=== PATIENT | female | born 1990 | race African-American/Black ===

== ENCOUNTER 2024-08-28 20:15 | Emergency (ER) | payer OTHER, SELFPAY ==
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
[2024-08-28 20:08] VITALS: BP 145/90; PULSE 131; RESP 28; TEMP 37.2; O2SAT 97
[2024-08-28 20:21] VITALS: BP 140/90; PULSE 125; PULSE 126; RESP 19; TEMP 37.2; O2SAT 97; O2SAT 98
--- NOTE | 2024-08-28 20:21 | ECG_ITS ---
Test Date: 2024-08-28 20:32:26 Measurements Intervals [place] Rate: 118 P: 46 IN: 149 QRS: -3 QRSD: 84 T: 56 QT: 318 QTc: 447 Interpretive Statements SINUS TACHYCARDIA VOLTAGE CRITERIA FOR LVH, CONSIDER NORMAL VARIANT NONSPECIFIC T-WAVE ABNORMALITY Electronically Signed On 08-28-2024 23:33:49 CDT by Lonnie Riley D.O
--- NOTE | 2024-08-28 20:23 | PC.NURSE ---
pt arrives with cerda catheter in place. 1200 ml emptied from bag at arrival.
[2024-08-28] MEDS: ASPIRIN 81 MG CHEWABLE TABLET 324 MG PO (20:36)
[2024-08-28 20:40] LABS: Hematocrit 33.8 % (37.0-47.0); Hemoglobin 10.3 g/dL (12.0-15.0); Immature Granulocyte Percent A 0.6 % (0-0.5); Lymphocytes Absolute Auto 1.77 K/mm3 (0.9-3.2); Mean Corpuscular HGB Conc 30.5 g/dl (32-36); Mean Corpuscular Hemoglobin 25.5 pg (26-34); Mean Corpuscular Volume 83.7 fl (80-100); Nucleated Red Blood Cells Absolute Auto 0.000 K/mm3 (0.0-0.012); Nucleated Red Blood Cells Perc 0.0 % (0.0-0.2); Platelet Count Result 622 k/mm3 (150-375); Red Blood Count 4.04 M/mm3 (4.2-5.4); White Blood Count 11.3 K/mm3 (4.5-10.0)
[2024-08-28 20:52] LABS: Alanine Aminotransferase 16 U/L (6-35); Albumin Level 4.0 g/dL (3.5-5.1); Alkaline Phosphatase 205 U/L (38-126); Anion Gap 13 mmol/L (4-12); Aspartate Amino Transferase 25 U/L (14-36); Bilirubin,Total 1.0 mg/dL (0.2-1.3); Blood Urea Nitrogen 8 mg/dL (7-17); Calcium 10.1 mg/dL (8.4-10.2); Carbon Dioxide 20 mmol/L (22-30); Chloride 101 mmol/L (98-107); Estimated CRCL calculation 146 ml/min; Estimated Glomerular Filt Rate > 60; Glucose 90 mg/dL (65-110); INR 1.2; Lipase 34 U/L (23-300); Partial Thromboplastin Time 35.6 Seconds (22.3-36.8); Potassium 4.6 mmol/L (3.4-5.0); Prothrombin Time 15.0 Seconds (11.1-14.7); Sodium 134 mmol/L (137-145); Total Protein 7.9 g/dL (6.3-8.2)
[2024-08-28 21:04] LABS: Troponin I < 0.012 ng/mL (0.000-0.034)
[2024-08-28 21:42] VITALS: BP 129/80; PULSE 117; RESP 21; O2SAT 100
--- NOTE | 2024-08-28 21:59 | ED_ITS ---
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 represent atelectasis and/or infarct. Presumed atelectasis in the dependent left lower lobe. Left lower quadrant colostomy, with surrounding inflammatory stranding/fluid. Correlate for clinical findings of infection or leak. Right ischial decubitus ulcer extending to bone, with findings suggestive of early osteomyelitis in the right ischium. . <Brooke Reaves APRN - Last Filed: 08/29/24 03:15> ECG Data EKG #1: Attestation: I personally reviewed and interpreted this ECG as follows: <Brooke Reaves APRN - Last Filed: 08/29/24 03:15> ECG completion date: 08/28/24 <Brooke Reaves APRN - Last Filed: 08/29/24 03:15> ECG completion time: 20:35 <Brooke Reaves APRN - Last Filed: 08/29/24 03:15> Prior ECG tracings: available for review <Brooke Reaves APRN - Last Filed: 08/29/24 03:15> Ischemic changes: non-specific ST-T wave changes <Brooke Reaves APRN - Last Filed: 08/29/24 03:15> EKG Interpretation: tachycardia and sinus rhythm <Brooke Reaves APRN - Last Filed: 08/29/24 03:15> Critical Care Time Critical Care Time Critical Care Time: Yes <Brooke Reaves APRN - Last Filed: 08/29/24 03:15> Yes <Brayden Bernardo MD - Last Filed: 08/29/24 07:07> Total Critical Care Time: 55 <Brooke Reaves APRN - Last Filed: 08/29/24 03:15> Discharge Plan Discharge Clinical Impression: Pulmonary embolism and infarction, Sepsis, Osteomyelitis <Brooke Reaves APRN - Last Filed: 08/29/24 03:15> Patient Disposition: Acute Care Hospital <Brooke Reaves APRN - Last Filed: 08/29/24 03:15> Condition: Serious <Brooke Reaves APRN - Last Filed: 08/29/24 03:15> Patient Language: Polish <Brooke Reaves APRN - Last Filed: 08/29/24 03:15> Follow-up/Referrals: PHYSICIAN,WINDOWS SECURITY ENGINEER [Primary Care Provider] - <Brooke Reaves APRN - Last Filed: 08/29/24 03:15>
--- OUTSIDE RECORDS SUMMARY | 2024-08-28 22:01 | XMS_ITS | Clinical Summary ---
Author Organization [facility] Address [facility] [place] [address] Care Team Providers Care Brass Sorter Name Role Phone Timothy Townsend MD Primary Care Provider [phone] Allergies Active Allergy Reactions Criticality Noted Date Comments Ceftriaxone Other (see comment) 04/13/2024 Pt unsure her reaction due to being out of it. Medications No known medications Encounters Date Type Department Care Team Description 05/30/2024 Results Follow-Up [facility] [place] [address] Virgie Grubbs, JAQUI CULTURE URINE from Last 3 Months Social History Tobacco Use Types Packs/Day Years Used Date Smoking Tobacco: Unknown Tobacco Cessation:Counseling Given: Not Answered Alcohol Use Standard Drinks/Week Comments Not Currently 0 (1 standard drink = 0.6 oz pur e alcohol) Comments No Sex and Gender Information Value Date Recorded Sex Assigned at Female 04/13/2024 5:28 PM LEARNING DESIGNER Legal Sex Female 11:24 AM CDT Gender Identity Not on file Sexual Orientation Not on file Last Filed Vital Signs Vital Sign Reading Time Taken Comments Blood Pressure 123/75 05/28/2024 6:06 PM CDT Pulse 108 05/28/2024 6:06 PM CDT Temperature 36.7 C (98.1 F) 05/28/2024 6:06 PM CDT Respiratory Rate 18 05/28/2024 6:06 PM CDT Oxygen Saturation 100% 05/28/2024 6:06 PM CDT Inhaled Oxygen Concentration - - Weight 104.3 kg (230 lb) 05/28/2024 6:06 PM CDT Height 160 cm (5' 3) 05/28/2024 6:06 PM CDT Body Mass Index 40.74 05/28/2024 6:06 PM CDT Plan of Treatment Health Maintenance Due Date Last Done Comments Cervical Cancer Screening Pa p Smear (Age 30 to 64) Every 3 Years 1990 Annual Physical 1993 DTaP, Tdap and Td Vaccines ( 1 - Tdap) 2009 Hepatitis B Vaccines (1 of 3 - 19+ 3-dose series) 2009 Cervical Cancer Screening Pa p with HPV Testing (Age 30 to 64) Every 5 Years 2020 Cervical Cancer Screening wi th HPV 2020 COVID-19 Vaccine (2023-2 5 season) 2023 Hepatitis C Completed 05/17/2024, 05/17/2024 HPV Vaccines Aged Out No longer eligi ble based on patient's age to complete this topic Meningococcal B Vaccine Aged Out No l onger eligible based on patient's age to complete this topic Meningococcal Vaccine Aged Out No drake susan eligible based on patient's age to complete this topic Pneumococcal Vaccine: Pediatrics (0 to 5 Years) and At-Risk Patients (6 to 49 Years) Aged Out No longer eligible b ased on patient's age to complete this topic RSV Immunizations Under 20 Months Aged Out No longer eligible b ased on patient's age to complete this topic Insurance [facility] Care Teams Brass Sorter Relationship Specialty Start Date End Date Timothy Townsend MD [address] [address] PCP - General FAMILY PRACTICE 08/10/23
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
--- OUTSIDE RECORDS SUMMARY | 2024-08-28 22:01 | XMS_ITS | Data Portability ---
Author Organization [facility] YVETTEArvind Address [address] [place] [address] Care Team Providers Care Greige Goods Inspector Name Role Phone TIMOTHY HYATT Primary Care Provider Liyah e Assessment No assessment recorded. Plan of Treatment Reminders Order Date Submit Date Provider Last Modified By Organization Details Last Modified Time Details Appointments None recorded . Lab culture, urine 2023 024 [facility], [address] [place] [address], [address], [place], [address], 4 13:10:53 urinalys is, complete 2023 024 [facility], [address] [place] [address], [address], [place], [address], 4 03:09:08 Referral occupati onal therapis t referral 2024 025 [facility], [address], Abdoul Kiran, [place], [address], 5 14:04:23 physical therapis t referral 2023 024 [facility], [facility] [place], [address], 4 12:24:19 occupati onal therapis t referral 2023 024 [facility], [facility] [place], [address], 4 10:43:20 Procedures None recorded . Surgeries None recorded . Imaging None recorded . Medication Orders ciproflo xacin 0.3 %-dexame thasone 0.1 % ear drops,benitez spension 2024 025 [id number], [address] , [place], [address], 5 11:50:29 pregabal in 300 mg capsule 2024 [address]25 [id number], [address] [place], [address], 5 15:01:20 oxycodon e 15 mg tablet 2024 025 [id number], [address] [place], [address], 5 11:50:30 BZK Antisept ic [place] es 0.13 % [address], [address], [address], 5 17:14:18 morphine ER 30 mg tablet,e xtended release 2024 025 [id number], [address] [place], [address], 5 15:04:49 oxycodon e 15 mg tablet 2024 025 [id number], [address] [place], [address], 5 12:56:30 trazodon e 150 mg tablet 2024 025 [id number], [address] [place], [address], 5 12:56:29 ammonium lactate 12 % lotion 2023 [id number], [address], [place], [address], 4 12:38:36 bisacody l 10 mg rectal supposit ory 2023 [id number], [address], [place], [address], 4 12:38:33 senna 8.6 mg tablet 2023 [id number], [address], [place], [address], 4 12:38:31 morphine ER 30 mg tablet,e xtended release 2023 [id number], [address], [place], [address], 4 12:38:44 oxycodon e 10 mg tablet 2023 [email or web address] [id number], [address], [place], [address], 5 15:03:22 pregabal in 200 mg capsule 2023 [id number], [address], [place], [address], 4 12:38:45 tizanidi ne 4 mg tablet 2023 [id number], [address], [place], [address], 4 12:38:32 trazodon e 50 mg tablet 2023 [id number], [address], [place], [address], 4 12:38:33 lidocain e 5 % topical patch 2023 [id number], [address] , [place], [address], 4 12:38:31 duloxeti ne 30 mg capsule, delayed release 2023 [id number], [address], [place], [address], 4 11:43:38 oxycodon e 10 mg tablet [id number], [address] [place], [address], 5 15:03:22 ciproflo xacin 0.3 %-dexame thasone 0.1 % ear drops,benitez spension [address] [facility][id number], [address], [place], [id number], 4 11:12:01 tizanidi ne 4 mg tablet [address] [facility] #[id number], [address] [place], [place], [id number], 4 10:30:24 pregabal in 200 mg capsule [address] [facility] #44029, [address], [place], [id number], 4 10:30:47 morphine ER 30 mg tablet,e xtended release [address] [facility] #18855, [address], [place], [id number], 4 10:30:38 Patient TargetsNo targets recorded. Patient Instructions Encounter Date Encounter Id Patient Instructions Last Modified By Organization Details Last Modified Time 04/11/2024 [id number] A healthy lifestyle: care instructions [email or web address] Not available 04/13/2024 14:43:02 Reason for Referral Physical Therapist Referral for Paraplegia with neurogenic urinary bladder Referring Physician: Timothy Hyatt [facility], Encounter Date: 10/23/2023 Occupational Therapist Refer ral for Paraplegia with neurogenic urinary bladder Referring Physician: Timothy Hyatt [facility], Encounter Date: 10/23/2023 Occupational Therapist Refer ral for Paraplegia with neurogenic urinary bladder Referring Physician: Timothy Hyatt [facility], Encounter Date: 04/11/2024 Results Created Date Observation Date Name Description Value Unit Range Abnormal Flag Note LastModifiedBy Organization Detail LastModifiedTime 09/12/19 24 09/19/2023 URINE CULTU RE, ROUTI NE urine culture, routine FINAL REPORT abnormal Not Available [facility] ([facility]) [address], [place], [address], 09/19/2023 13:10:53 09/12/19 24 09/19/2023 URINE CULTU RE, ROUTI NE result 1 COMMEN T abnormal Esche ba a coli, ident ified by an autom ated bioch emica l syste m. Cefaz nahed with an ANGIE <=16 predi cts susce ptibi lity to the oral agent s cefac aleida, cefdi radha, cefpo doxim e, cefpr ozil, cefur oxime , cepha lexin , and lorac arbef when used for thera py of uncom plica riaz urina ry tract infec tions due to E. coli, Klebs iella pneum oniae , and Prote us mirab ilis. Great er than 100,0 00 colon y formi ng units per mL Not Available [facility] ([facility]) [address], [place], [address], 09/19/2023 13:10:53 09/12/19 24 09/19/2023 URINE CULTU RE, ROUTI NE result 2 KLEBSI PEBBLES PNEUMO NIAE abnormal Cefaz nahed <=4 ug/mL Cefaz nahed with an ANGIE <=16 predi cts susce ptibi lity to the oral agent s cefac aleida, cefdi radha, cefpo doxim e, cefpr ozil, cefur oxime , cepha lexin , and lorac arbef when used for thera py of uncom plica riaz urina ry tract infec tions due to E. coli, Klebs iella pneum oniae , and Prote us mirab ilis. Great er than 100,0 00 colon y formi ng units per mL Not Available [facility] ([facility]) [address], [place], [address], 09/19/2023 13:10:53 09/12/19 24 09/19/2023 URINE CULTU RE, ROUTI NE antimicrobia l susceptibili ty COMMEN T S = Susce ptibl e; I = Inter media te; R = Resis tant P = Posit jennifer; N = Negat jennifer MICS are expre ssed in micro grams per mL Antib iotic RSLT# 1 RSLT# 2 RSLT# 3 RSLT# 4 Amoxi cilli n/Cla vulan ic Acid I S Ampic illin R R Cefaz nahed S Cefep petar S Ceftr iaxon e S S Cefur oxime I S Cipro floxa jaime R S Ertap enem S S Genta micin S S Imipe nem S S Levof loxac in R S Merop enem S S Nitro furan toin S S Piper acill in/Ta zobac zavala S Tetra cycli ne R S Tobra mycin S S Trime thopr im/Benitez lfa S S Not Available [facility] ([facility]) [address], [place], [address], 09/19/2023 13:10:53 10/10/19 24 10/11/2023 MICRO SCOPI C EXAMI NATIO N WBC >30 /hpf 0-5 abnormal Not Available [facility] ([facility]) [address], [place], [address], 10/11/2023 03:09:07 10/10/19 24 10/11/2023 MICRO SCOPI C EXAMI NATIO N RBC >30 /hpf 0-2 abnormal Not Available [facility] ([facility]) [address], [place], [address], 10/11/2023 03:09:07 10/10/19 24 10/11/2023 MICRO SCOPI C EXAMI NATIO N epithelial cells (non renal) None seen /hpf 0-10 Not Available [facility] ([facility]) [address], [place], [address], 10/11/2023 03:09:07 10/10/19 24 10/11/2023 MICRO SCOPI C EXAMI NATIO N casts None seen /lpf nonese en Not Available [facility] ([facility]) [address], [place], [address], 10/11/2023 03:09:07 10/10/19 24 10/11/2023 MICRO SCOPI C EXAMI NATIO N bacteria Many nonese en/few abnormal Not Available [facility] ([facility]) [address] [place], [address], 10/11/2023 03:09:07 10/10/19 24 10/10/2023 URINA LYSIS , COMPL ETE specific gravity 1.023 1.005- 1.030 Not Available [facility] ([facility]) [address] [place], [address], 10/11/2023 03:09:08 10/10/19 24 10/10/2023 URINA LYSIS , COMPL ETE pH 5.5 5.0-7. 5 Not Available [facility] ([facility]) [address] [place], [address], 10/11/2023 03:09:08 10/10/19 24 10/10/2023 URINA LYSIS , COMPL ETE urine-color YELLOW yellow Not Available [facility]) [address], [place], [address], 10/11/2023 03:09:08 10/10/19 24 10/10/2023 URINA LYSIS , COMPL ETE appearance CLOUDY clear abnormal Not Available [facility]) [address], [place], [address], 10/11/2023 03:09:08 10/10/19 24 10/10/2023 URINA LYSIS , COMPL ETE WBC esterase 3+ negati ve abnormal Not Available [facility] ([facility]) [address] [place], [address], 10/11/2023 03:09:08 10/10/19 24 10/10/2023 URINA LYSIS , COMPL ETE protein 1+ negati ve/tra ce abnormal Not Available [facility] ([facility]) [address] [place], [address], 10/11/2023 03:09:08 10/10/19 24 10/10/2023 URINA LYSIS , COMPL ETE glucose NEGATI VE negati ve Not Available [facility] ([facility]) [address] [place], [address], 10/11/2023 03:09:08 10/10/19 24 10/10/2023 URINA LYSIS , COMPL ETE ketones NEGATI VE negati ve Not Available [facility] ([facility]) [address] [place], [address], 10/11/2023 03:09:08 10/10/19 24 10/10/2023 URINA LYSIS , COMPL ETE occult blood 3+ negati ve abnormal Not Available [facility] ([facility]) [address] [place], [address], 10/11/2023 03:09:08 10/10/19 24 10/10/2023 URINA LYSIS , COMPL ETE bilirubin NEGATI VE negati ve Not Available [facility] ([facility]) [address] [place], [address], 10/11/2023 03:09:08 10/10/19 24 10/10/2023 URINA LYSIS , COMPL ETE urobilinogen ,semi-qn 0.2 mg/dL 0.2-1. 0 Not Available [facility] ([facility]) [address] [place], [address], 10/11/2023 03:09:08 10/10/19 24 10/10/2023 URINA LYSIS , COMPL ETE nitrite, urine NEGATI VE negati ve Not Available [facility] ([facility]) [address] [place], [address], 10/11/2023 03:09:08 10/10/19 24 10/10/2023 URINA LYSIS , COMPL ETE microscopic examination SEE BELOW: Micro scopi c was indic ated and was perfo rmed. Not Available [facility] ([facility]) [address] [place], [address], 10/11/2023 03:09:08 10/10/19 24 10/11/2023 MICRO SCOPI C EXAMI NATIO N WBC >30 /hpf 0-5 abnormal Clump s of leuko cytes prese nt. Not Available [facility] ([facility]) [address] [place], [address], 10/11/2023 03:09:10 10/10/19 24 10/11/2023 MICRO SCOPI C EXAMI NATIO N RBC >30 /hpf 0-2 abnormal Not Available [facility] ([facility]) [address] [place], [address], 10/11/2023 03:09:10 10/10/19 24 10/11/2023 MICRO SCOPI C EXAMI NATIO N epithelial cells (non renal) None seen /hpf 0-10 Not Available [facility] ([facility]) [address] [facility], [place], [address], 10/11/2023 03:09:10 10/10/19 24 10/11/2023 MICRO SCOPI C EXAMI NATIO N casts Presen t /lpf nonese en abnormal Not Available [facility] ([facility]) [address] [place], [address], 10/11/2023 03:09:10 10/10/19 24 10/11/2023 MICRO SCOPI C EXAMI NATIO N cast type Hyalin e casts Not Available [facility] ([facility]) [address] [place], [address], 10/11/2023 03:09:10 10/10/19 24 10/11/2023 MICRO SCOPI C EXAMI NATIO N crystals Presen t n/a abnormal Not Available [facility]) [address] [place], [address], 10/11/2023 03:09:10 10/10/19 24 10/11/2023 MICRO SCOPI C EXAMI NATIO N crystal type Calciu m Oxalat e Not Available [facility] ([facility]) [address] [place], [address], 10/11/2023 03:09:10 10/10/19 24 10/11/2023 MICRO SCOPI C EXAMI NATIO N bacteria Many nonese en/few abnormal Not Available [facility] ([facility]) [address] [place], [address], 10/11/2023 03:09:10 10/10/19 24 10/10/2023 URINA LYSIS , COMPL ETE specific gravity 1.023 1.005- 1.030 Not Available [facility] ([facility]) [address] [facility], [place], [address], 10/11/2023 03:09:11 10/10/19 24 10/10/2023 URINA LYSIS , COMPL ETE pH 5.5 5.0-7. 5 Not Available [facility] ([facility]) [address], [place], [address], 10/11/2023 03:09:11 10/10/19 24 10/10/2023 URINA LYSIS , COMPL ETE urine-color YELLOW yellow Not Available [facility]) [address] [facility], [place], [address], 10/11/2023 03:09:11 10/10/19 24 10/10/2023 URINA LYSIS , COMPL ETE appearance CLOUDY clear abnormal Not Available [facility]) [address] [facility], [place], [address], 10/11/2023 03:09:11 10/10/19 24 10/10/2023 URINA LYSIS , COMPL ETE WBC esterase 3+ negati ve abnormal Not Available [facility] ([facility]) [address] [facility], [place], [address], 10/11/2023 03:09:11 10/10/19 24 10/10/2023 URINA LYSIS , COMPL ETE protein 1+ negati ve/tra ce abnormal Not Available [facility] ([facility]) [address] [place], [address], 10/11/2023 03:09:11 10/10/19 24 10/10/2023 URINA LYSIS , COMPL ETE glucose NEGATI VE negati ve Not Available [facility] ([facility]) [address] [place], [address], 10/11/2023 03:09:11 10/10/19 24 10/10/2023 URINA LYSIS , COMPL ETE ketones NEGATI VE negati ve Not Available [facility] ([facility]) [address] [place], [address], 10/11/2023 03:09:11 10/10/19 24 10/10/2023 URINA LYSIS , COMPL ETE occult blood 3+ negati ve abnormal Not Available [facility] ([facility]) [address] [place], [address], 10/11/2023 03:09:11 10/10/19 24 10/10/2023 URINA LYSIS , COMPL ETE bilirubin NEGATI VE negati ve Not Available [facility] ([facility]) [address] [place], [address], 10/11/2023 03:09:11 10/10/19 24 10/10/2023 URINA LYSIS , COMPL ETE urobilinogen ,semi-qn 0.2 mg/dL 0.2-1. 0 Not Available [facility] ([facility]) [address] [place], [address], 10/11/2023 03:09:11 10/10/19 24 10/10/2023 URINA LYSIS , COMPL ETE nitrite, urine NEGATI VE negati ve Not Available [facility] ([facility]) [address] [place], [address], 10/11/2023 03:09:11 10/10/19 24 10/10/2023 URINA LYSIS , COMPL ETE microscopic examination SEE BELOW: Micro scopi c was indic ated and was perfo rmed. Not Available [facility] ([facility]) [address] [place], [address], 10/11/2023 03:09:11 10/10/19 24 10/15/2023 URINE CULTU RE, ROUTI NE urine culture, routine FINAL REPORT abnormal Not Available [facility] ([facility]) [address] [place], [address], 10/15/2023 13:07:25 10/10/19 24 10/15/2023 URINE CULTU RE, ROUTI NE result 1 ESCHER ICHIA COLI abnormal Great er than 100,0 00 colon y formi ng units per mL Cefaz nahed <=4 ug/mL Cefaz nahed with an ANGIE <=16 predi cts susce ptibi lity to the oral agent s cefac aleida, cefdi radha, cefpo doxim e, cefpr ozil, cefur oxime , cepha lexin , and lorac arbef when used for thera py of uncom plica riaz urina ry tract infec tions due to E. coli, Klebs iella pneum oniae , and Prote us mirab ilis. Not Available [facility] ([facility]) [address] [place], [address], 10/15/2023 13:07:25 10/10/19 24 10/15/2023 URINE CULTU RE, ROUTI NE result 2 KLEBSI PEBBLES PNEUMO NIAE abnormal Cefaz nahed <=4 ug/mL Cefaz nahed with an ANGIE <=16 predi cts susce ptibi lity to the oral agent s cefac aleida, cefdi radha, cefpo doxim e, cefpr ozil, cefur oxime , cepha lexin , and lorac arbef when used for thera py of uncom plica riaz urina ry tract infec tions due to E. coli, Klebs iella pneum oniae , and Prote us mirab ilis. 50,00 0-100 ,000 colon y formi ng units per mL Not Available [facility] ([facility]) [address] [facility], [place], [address], 10/15/2023 13:07:25 10/10/19 24 10/15/2023 URINE CULTU RE, ROUTI NE antimicrobia l susceptibili ty COMMEN T S = Susce ptibl e; I = Inter media te; R = Resis tant P = Posit jennifer; N = Negat jennifer MICS are expre ssed in micro grams per mL Antib iotic RSLT# 1 RSLT# 2 RSLT# 3 RSLT# 4 Amoxi cilli n/Cla vulan ic Acid S S Ampic illin S R Cefep petar S S Ceftr iaxon e S S Cefur oxime S S Cipro floxa jaime S S Ertap enem S S Genta micin S S Imipe nem S S Levof loxac in S S Merop enem S S Nitro furan toin S S Piper acill in/Ta zobac zavala S S Tetra cycli ne S S Tobra mycin S S Trime thopr im/Benitez lfa S S Not Available [facility] ([facility]) [address] [facility], [place], [address], 10/15/2023 13:07:25 04/14/19 25 04/13/2024 Urina lysis dipst ick W Refle x Micro scopi c panel - Urine collection method - specimen URINE STRAIG HT CATH SPECI MEN TYPE URINE STRAI GHT CATH 04/13 5:03 PM FULFILLMENT COORDINATOR [facility] Not Available Not Available 04/13/2024 23:05:23 04/14/19 25 04/13/2024 Urina lysis dipst ick W Refle x Micro scopi c panel - Urine color of urine COLORL ESS COLOR (U) COLOR LESS 04/13 5:26 PM FULFILLMENT COORDINATOR [facility] Not Available Not Available 04/13/2024 23:05:23 04/14/19 25 04/13/2024 Urina lysis dipst ick W Refle x Micro scopi c panel - Urine clarity of urine CLEAR TRANS PAREN CY CLEAR 04/13 5:26 PM FULFILLMENT COORDINATOR [facility] Not Available Not Available 04/13/2024 23:05:23 04/14/19 25 04/13/2024 Urina lysis dipst ick W Refle x Micro scopi c panel - Urine specific gravity of urine 1.019 low: 1.001h igh: 1.03 SPECI FIC GRAVI TY (U) 1.019 1.001 - 1.030 04/13 5:26 PM FULFILLMENT COORDINATOR [facility] Not Available Not Available 04/13/2024 23:05:23 04/14/19 25 04/13/2024 Urina lysis dipst ick W Refle x Micro scopi c panel - Urine pH of urine 6 low: 5high: 9 U PH 6.0 5.0 - 9.0 04/13 5:26 PM FULFILLMENT COORDINATOR [facility] Not Available Not Available 04/13/2024 23:05:23 04/14/19 25 04/13/2024 Urina lysis dipst ick W Refle x Micro scopi c panel - Urine leukocytes [#/volume] in urine by test strip NEGATI VE text: negati ve LEUKO CYTES (U) NEGAT JENNIFER NEGAT JENNIFER 04/13 5:26 PM FULFILLMENT COORDINATOR [facility] Not Available Not Available 04/13/2024 23:05:23 04/14/19 25 04/13/2024 Urina lysis dipst ick W Refle x Micro scopi c panel - Urine nitrite [presence] in urine NEGATI VE text: negati ve NITRI SERVANDO NEGAT JENNIFER NEGAT JENNIFER 04/13 5:26 PM FULFILLMENT COORDINATOR [facility] Not Available Not Available 04/13/2024 23:05:23 04/14/19 25 04/13/2024 Urina lysis dipst ick W Refle x Micro scopi c panel - Urine protein [mass/volume ] in urine by test strip NEGATI VE text: <30 mg/dL PROTE IN RANDO M (U) NEGAT JENNIFER <30 MG/DL 04/13 5:26 PM FULFILLMENT COORDINATOR [facility] Not Available Not Available 04/13/2024 23:05:23 04/14/19 25 04/13/2024 Urina lysis dipst ick W Refle x Micro scopi c panel - Urine glucose [mass/volume ] in urine NORMAL text: normal mg/dL GLUCO SE (U) JEUSS ALBERTO L JESUS ALBERTO L MG/DL 04/13 5:26 PM FULFILLMENT COORDINATOR [facility] Not Available Not Available 04/13/2024 23:05:23 04/14/19 25 04/13/2024 Urina lysis dipst ick W Refle x Micro scopi c panel - Urine ketones [mass/volume ] in urine by test strip TRACE text: negati ve mg/dL abnormal KETON ES MG/DL (U) TRACE (A) NEGAT JENNIFER MG/DL 04/13 5:26 PM FULFILLMENT COORDINATOR [facility] Not Available Not Available 04/13/2024 23:05:23 04/14/19 25 04/13/2024 Urina lysis dipst ick W Refle x Micro scopi c panel - Urine urobilinogen [units/volum e] in urine by test strip NORMAL text: normal mg/dL UROBI LINOG EN JESUS ALBERTO L JESUS ALBERTO L MG/DL 04/13 5:26 PM FULFILLMENT COORDINATOR [facility] Not Available Not Available 04/13/2024 23:05:23 04/14/19 25 04/13/2024 Urina lysis dipst ick W Refle x Micro scopi c panel - Urine bilirubin.to raheel [mass/volume ] in urine NEGATI VE text: negati ve mg/dL BILIR UBIN (U) NEGAT JENNIFER NEGAT JENNIFER MG/DL 04/13 5:26 PM FULFILLMENT COORDINATOR [facility] Not Available Not Available 04/13/2024 23:05:23 04/14/19 25 04/13/2024 Urina lysis dipst ick W Refle x Micro scopi c panel - Urine erythrocytes [#/volume] in urine by automated test strip 1+ text: negati ve abnormal BLOOD (U) 1+ (A) NEGAT JENNIFER 04/13 5:26 PM FULFILLMENT COORDINATOR [facility] Not Available Not Available 04/13/2024 23:05:23 04/14/19 25 04/13/2024 Urina lysis dipst ick W Refle x Micro scopi c panel - Urine leukocytes [#/area] in urine sediment by microscopy high power field 2 text: <6 /hpf WBC/H PF 2 <6 /HPF 04/13 5:26 PM FULFILLMENT COORDINATOR [facility] Not Available Not Available 04/13/2024 23:05:23 04/14/19 25 04/13/2024 Urina lysis dipst ick W Refle x Micro scopi c panel - Urine erythrocytes [#/area] in urine sediment by microscopy high power field 6 text: <6 /hpf high RBC/H PF 6 (H) <6 /HPF 04/13 5:26 PM FULFILLMENT COORDINATOR [facility] Not Available Not Available 04/13/2024 23:05:23 04/14/19 25 04/13/2024 Urina lysis dipst ick W Refle x Micro scopi c panel - Urine bacteria [#/area] in urine sediment by microscopy high power field RARE text: none /hpf abnormal BACTE SABRINA (U) RARE (A) NONE /HPF 04/13 5:26 PM FULFILLMENT COORDINATOR [facility] Not Available Not Available 04/13/2024 23:05:23 04/14/19 25 04/13/2024 Urina lysis dipst ick W Refle x Micro scopi c panel - Urine interpretati on and review of laboratory results Abnorm al Not Available Not Available 23:05:23 04/14/19 25 04/13/2024 Influ ross virus A and B and SARS- CoV-2 (COVI D-19) and SARS- relat ed CoV RNA panel - Respi rator y syste m speci men by LEEANNE with probe detec tion adenovirus DNA [presence] in nasopharynx by LEEANNE with probe detection NOT DETECT ED text: not detect ed ADENO VIRUS PCR (RESP ) NOT DETEC RIAZ NOT DETEC RIAZ 04/13 4:36 PM FULFILLMENT COORDINATOR [facility] Not Available Not Available 04/13/2024 23:05:23 04/14/19 25 04/13/2024 Influ ross virus A and B and SARS- CoV-2 (COVI D-19) and SARS- relat ed CoV RNA panel - Respi rator y syste m speci men by LEEANNE with probe detec tion human coronavirus 229E RNA [presence] in specimen by LEEANNE with probe detection NOT DETECT ED text: not detect ed CORON AVIRU S 229E PCR (RESP ) NOT DETEC RIAZ NOT DETEC RIAZ 04/13 4:36 PM FULFILLMENT COORDINATOR [facility] Not Available Not Available 04/13/2024 23:05:23 04/14/19 25 04/13/2024 Influ ross virus A and B and SARS- CoV-2 (COVI D-19) and SARS- relat ed CoV RNA panel - Respi rator y syste m speci men by LEEANNE with probe detec tion human coronavirus hku1 RNA [presence] in specimen by LEEANNE with probe detection NOT DETECT ED text: not detect ed CORON AVIRU S HKU1 PCR (RESP ) NOT DETEC RIAZ NOT DETEC RIAZ 04/13 4:36 PM FULFILLMENT COORDINATOR [facility] Not Available Not Available 04/13/2024 23:05:23 04/14/19 25 04/13/2024 Influ ross virus A and B and SARS- CoV-2 (COVI D-19) and SARS- relat ed CoV RNA panel - Respi rator y syste m speci men by LEEANNE with probe detec tion human coronavirus nl63 RNA [presence] in specimen by LEEANNE with probe detection NOT DETECT ED text: not detect ed CORON AVIRU S NL63 PCR (RESP ) NOT DETEC RIAZ NOT DETEC RIAZ 04/13 4:36 PM FULFILLMENT COORDINATOR [facility] Not Available Not Available 04/13/2024 23:05:23 04/14/19 25 04/13/2024 Influ ross virus A and B and SARS- CoV-2 (COVI D-19) and SARS- relat ed CoV RNA panel - Respi rator y syste m speci men by LEEANNE with probe detec tion human coronavirus oc43 RNA [presence] in specimen by LEEANNE with probe detection NOT DETECT ED text: not detect ed CORON AVIRU S OC43 PCR (RESP ) NOT DETEC RIAZ NOT DETEC RIAZ 04/13 4:36 PM FULFILLMENT COORDINATOR [facility] Not Available Not Available 04/13/2024 23:05:23 04/14/19 25 04/13/2024 Influ ross virus A and B and SARS- CoV-2 (COVI D-19) and SARS- relat ed CoV RNA panel - Respi rator y syste m speci men by LEEANNE with probe detec tion human metapneumovi callum RNA [presence] in nasopharynx by LEEANNE with probe detection NOT DETECT ED text: not detect ed METAP NEUMO VIRUS PCR (RESP ) NOT DETEC RIAZ NOT DETEC RIAZ 04/13 4:36 PM FULFILLMENT COORDINATOR [facility] Not Available Not Available 04/13/2024 23:05:23 04/14/19 25 04/13/2024 Influ ross virus A and B and SARS- CoV-2 (COVI D-19) and SARS- relat ed CoV RNA panel - Respi rator y syste m speci men by LEEANNE with probe detec tion rhinovirus+e nterovirus RNA [presence] in specimen by LEEANNE with probe detection NOT DETECT ED text: not detect ed RHINO VIRUS /ENTE ROVIR US PCR (RESP ) NOT DETEC RIAZ NOT DETEC RIAZ 04/13 4:36 PM FULFILLMENT COORDINATOR [facility] Not Available Not Available 04/13/2024 23:05:23 04/14/19 25 04/13/2024 Influ ross virus A and B and SARS- CoV-2 (COVI D-19) and SARS- relat ed CoV RNA panel - Respi rator y syste m speci men by LEEANNE with probe detec tion influenza virus A RNA [presence] in nasopharynx by LEEANNE with probe detection NOT DETECT ED text: not detect ed INFLU ROSS A PCR (RESP ) NOT DETEC RIAZ NOT DETEC RIAZ 04/13 4:36 PM FULFILLMENT COORDINATOR [facility] Not Available Not Available 04/13/2024 23:05:23 04/14/19 25 04/13/2024 Influ ross virus A and B and SARS- CoV-2 (COVI D-19) and SARS- relat ed CoV RNA panel - Respi rator y syste m speci men by LEEANNE with probe detec tion influenza virus B RNA [presence] in nasopharynx by LEEANNE with probe detection NOT DETECT ED text: not detect ed INFLU ROSS B PCR (RESP ) NOT DETEC RIAZ NOT DETEC RIAZ 04/13 4:36 PM FULFILLMENT COORDINATOR [facility] Not Available Not Available 04/13/2024 23:05:23 04/14/19 25 04/13/2024 Influ ross virus A and B and SARS- CoV-2 (COVI D-19) and SARS- relat ed CoV RNA panel - Respi rator y syste m speci men by LEEANNE with probe detec tion parainfluenz a virus 1 RNA [presence] in nasopharynx by LEEANNE with probe detection NOT DETECT ED text: not detect ed PARAI NFLUE NZA 1 PCR (RESP ) NOT DETEC RIAZ NOT DETEC RIAZ 04/13 4:36 PM FULFILLMENT COORDINATOR [facility] Not Available Not Available 04/13/2024 23:05:23 04/14/19 25 04/13/2024 Influ ross virus A and B and SARS- CoV-2 (COVI D-19) and SARS- relat ed CoV RNA panel - Respi rator y syste m speci men by LEEANNE with probe detec tion parainfluenz a virus 2 RNA [presence] in nasopharynx by LEEANNE with probe detection NOT DETECT ED text: not detect ed PARAI NFLUE NZA 2 PCR (RESP ) NOT DETEC RIAZ NOT DETEC RIAZ 04/13 4:36 PM FULFILLMENT COORDINATOR [facility] Not Available Not Available 04/13/2024 23:05:23 04/14/19 25 04/13/2024 Influ ross virus A and B and SARS- CoV-2 (COVI D-19) and SARS- relat ed CoV RNA panel - Respi rator y syste m speci men by LEEANNE with probe detec tion parainfluenz a virus 3 RNA [presence] in nasopharynx by LEEANNE with probe detection NOT DETECT ED text: not detect ed PARAI NFLUE NZA 3 PCR (RESP ) NOT DETEC RIAZ NOT DETEC RIAZ 04/13 4:36 PM FULFILLMENT COORDINATOR [facility] Not Available Not Available 04/13/2024 23:05:23 04/14/19 25 04/13/2024 Influ ross virus A and B and SARS- CoV-2 (COVI D-19) and SARS- relat ed CoV RNA panel - Respi rator y syste m speci men by LEEANNE with probe detec tion parainfluenz a virus 4 RNA [presence] in nasopharynx by LEEANNE with probe detection NOT DETECT ED text: not detect ed PARAI NFLUE NZA 4 PCR (RESP ) NOT DETEC RIAZ NOT DETEC RIAZ 04/13 4:36 PM FULFILLMENT COORDINATOR [facility] Not Available Not Available 04/13/2024 23:05:23 04/14/19 25 04/13/2024 Influ ross virus A and B and SARS- CoV-2 (COVI D-19) and SARS- relat ed CoV RNA panel - Respi rator y syste m speci men by LEEANNE with probe detec tion respiratory syncytial virus RNA [presence] in nasopharynx by LEEANNE with probe detection NOT DETECT ED text: not detect ed RSV PCR (RESP ) NOT DETEC RIAZ NOT DETEC RIAZ 04/13 4:36 PM FULFILLMENT COORDINATOR [facility] Not Available Not Available 04/13/2024 23:05:23 04/14/1904/13/2024 Influ ross virus A and B and SARS- CoV-2 (COVI D-19) and SARS- relat ed CoV RNA panel - Respi rator y syste m speci men by LEEANNE with probe detec tion bordetella parapertussi s DNA [presence] in nasopharynx by LEEANNE with probe detection NOT DETECT ED text: not detect ed B PARAP ERTUS IS PCR (RESP ) NOT DETEC RIAZ NOT DETEC RIAZ 04/13 4:36 PM FULFILLMENT COORDINATOR [facility] Not Available Not Available 04/13/2024 23:05:23 04/14/19 25 04/13/2024 Influ ross virus A and B and SARS- CoV-2 (COVI D-19) and SARS- relat ed CoV RNA panel - Respi rator y syste m speci men by LEEANNE with probe detec tion bordetella pertussis DNA [presence] in nasopharynx by LEEANNE with probe detection NOT DETECT ED text: not detect ed BORDE TELLA PERTU SSIS PCR (RESP ) NOT DETEC RIAZ NOT DETEC RIAZ 04/13 4:36 PM FULFILLMENT COORDINATOR [facility] Not Available Not Available 04/13/2024 23:05:23 04/14/19 25 04/13/2024 Influ ross virus A and B and SARS- CoV-2 (COVI D-19) and SARS- relat ed CoV RNA panel - Respi rator y syste m speci men by LEEANNE with probe detec tion chlamydophil a pneumoniae DNA [presence] in specimen by LEEANNE with probe detection NOT DETECT ED text: not detect ed CHLAM YDOPH NAYE PNEUM ONIAE PCR (RESP ) NOT DETEC RIAZ NOT DETEC RIAZ 04/13 4:36 PM FULFILLMENT COORDINATOR [facility] Not Available Not Available 04/13/2024 23:05:23 04/14/19 25 04/13/2024 Influ ross virus A and B and SARS- CoV-2 (COVI D-19) and SARS- relat ed CoV RNA panel - Respi rator y syste m speci men by LEEANNE with probe detec tion mycoplasma pneumoniae DNA [presence] in specimen by LEEANNE with probe detection NOT DETECT ED text: not detect ed MYCOP LASMA PNEUM ONIAE PCR (RESP ) NOT DETEC RIAZ NOT DETEC RIAZ 04/13 4:36 PM FULFILLMENT COORDINATOR [facility] Not Available Not Available 04/13/2024 23:05:23 04/14/19 25 04/13/2024 Influ ross virus A and B and SARS- CoV-2 (COVI D-19) and SARS- relat ed CoV RNA panel - Respi rator y syste m speci men by LEEANNE with probe detec tion sars-cov-2 (covid-19) RNA [presence] in specimen by LEEANNE with probe detection NOT DETECT ED text: not detect ed CORON AVIRU S SARS COV 2 PCR (RESP ) NOT DETEC RIAZ NOT DETEC RIAZ 04/13 4:36 PM [facility] Not Available Not Available 04/13/2024 23:05:23 04/14/19 25 04/13/2024 Chori ogona dotro pin.b eta subun it [Unit s/vol ume] in Serum or Plasm a choriogonado tropin.beta subunit [units/volum e] in serum or plasma text: mIU/mL HCG QUANT ITATI VE <1 MIU/M L 04/13 2:29 PM FULFILLMENT COORDINATOR [facility] Not Available Not Available 04/13/2024 23:05:23 04/14/19 25 04/13/2024 CBC W Auto Diffe renti al panel - Blood leukocytes [#/volume] in blood by automated count 5.8 text: 4.5 - 11.0 x10'3/ uL WBC 5.80 4.5 - 11.0 x10'3 /uL 04/13 2:36 PM FULFILLMENT COORDINATOR [facility] Not Available Not Available 04/13/2024 23:05:23 04/14/19 25 04/13/2024 CBC W Auto Diffe renti al panel - Blood erythrocytes [#/volume] in blood by automated count 4.74 text: 4.20 - 5.40 x10'6/ uL RBC 4.74 4.20 - 5.40 x10'6 /uL 04/13 2:36 PM FULFILLMENT COORDINATOR [facility] Not Available Not Available 04/13/2024 23:05:23 04/14/19 25 04/13/2024 CBC W Auto Diffe renti al panel - Blood hemoglobin [mass/volume ] in blood 11.6 text: 12.0 - 16.0 g/dL low HGB 11.6 (L) 12.0 - 16.0 G/DL 04/13 2:36 PM [facility] Not Available Not Available 04/13/2024 23:05:23 04/14/19 25 04/13/2024 CBC W Auto Diffe renti al panel - Blood hematocrit [volume fraction] of blood 39.1 % low: 38%hig h: 48% HCT 39.1 38.0 - 48.0 % 04/13 2:36 PM FULFILLMENT COORDINATOR [facility] Not Available Not Available 04/13/2024 23:05:23 04/14/19 25 04/13/2024 CBC W Auto Diffe renti al panel - Blood MCV [entitic volume] 82.5 text: 81.0 - 99.0 fL MCV 82.5 81.0 - 99.0 FL 04/13 2:36 PM FULFILLMENT COORDINATOR [facility] Not Available Not Available 04/13/2024 23:05:23 04/14/19 25 04/13/2024 CBC W Auto Diffe renti al panel - Blood MCH [entitic mass] 24.5 pg low: 27pghi gh: 31pg low MCH 24.5 (L) 27.0 - 31.0 PG 04/13 2:36 PM FULFILLMENT COORDINATOR [facility] Not Available Not Available 04/13/2024 23:05:23 04/14/19 25 04/13/2024 CBC W Auto Diffe renti al panel - Blood MCHC [mass/volume ] 29.7 text: 32.0 - 36.0 g/dL low MCHC 29.7 (L) 32.0 - 36.0 G/DL 04/13 2:36 PM FULFILLMENT COORDINATOR [facility] Not Available Not Available 04/13/2024 23:05:23 04/14/19 25 04/13/2024 CBC W Auto Diffe renti al panel - Blood erythrocyte distribution width [entitic volume] by automated count 14.4 % low: 11.5%h igh: 14.5% RDW 14.4 11.5 - 14.5 % 04/13 2:36 PM [facility] Not Available Not Available 04/13/2024 23:05:23 04/14/19 25 04/13/2024 CBC W Auto Diffe renti al panel - Blood platelets [#/volume] in blood 157 text: 130 - 400 x10'3/ uL PLT 157 130 - 400 x10'3 /uL 04/13 2:36 PM FULFILLMENT COORDINATOR [facility] Not Available Not Available 04/13/2024 23:05:23 04/14/19 25 04/13/2024 CBC W Auto Diffe renti al panel - Blood platelet mean volume [entitic volume] in blood 10.8 text: 9.3 - 12.2 fL MPV 10.8 9.3 - 12.2 FL 04/13 2:36 PM FULFILLMENT COORDINATOR [facility] Not Available Not Available 04/13/2024 23:05:23 04/14/19 25 04/13/2024 CBC W Auto Diffe renti al panel - Blood differential cell count method - blood MANUAL DIFFER ENTIAL DIFFE RENTI AL TYPE MANUA L DIFFE RENTI AL 04/13 2:37 PM [facility] Not Available Not Available 04/13/2024 23:05:23 04/14/19 25 04/13/2024 CBC W Auto Diffe renti al panel - Blood segmented neutrophils/ 100 leukocytes in blood by manual count 77 % SEG NEUTR OPHIL S 77 % 04/13 2:37 PM [facility] Not Available Not Available 04/13/2024 23:05:23 04/14/19 25 04/13/2024 CBC W Auto Diffe renti al panel - Blood lymphocytes/ 100 leukocytes in blood by manual count 12 % LYMPH OCYTE S 12 % 04/13 2:37 PM [facility] Not Available Not Available 04/13/2024 23:05:23 04/14/19 25 04/13/2024 CBC W Auto Diffe renti al panel - Blood monocytes/10 0 leukocytes in blood by manual count 11 % MONOC YTES 11 % 04/13 2:37 PM FULFILLMENT COORDINATOR [facility] Not Available Not Available 04/13/2024 23:05:23 04/14/19 25 04/13/2024 CBC W Auto Diffe renti al panel - Blood neutrophils [#/volume] in blood 4.47 text: 1.80 - 7.70 x10'3/ uL ABS. NEUTR OPHIL S 4.47 1.80 - 7.70 x10'3 /uL 04/13 2:37 PM FULFILLMENT COORDINATOR [facility] Not Available Not Available 04/13/2024 23:05:23 04/14/19 25 04/13/2024 CBC W Auto Diffe renti al panel - Blood lymphocytes [#/volume] in blood 0.7 text: 1.00 - 4.80 x10'3/ uL low ABS. LYMPH OCYTE S 0.70 (L) 1.00 - 4.80 x10'3 /uL 04/13 2:37 PM FULFILLMENT COORDINATOR [facility] Not Available Not Available 04/13/2024 23:05:23 04/14/19 25 04/13/2024 CBC W Auto Diffe renti al panel - Blood monocytes [#/volume] in blood 0.64 text: 0.24 - 0.86 x10'3/ uL ABS. MONOC YTES 0.64 0.24 - 0.86 x10'3 /uL 04/13 2:37 PM FULFILLMENT COORDINATOR [facility] Not Available Not Available 04/13/2024 23:05:23 04/14/19 25 04/13/2024 CBC W Auto Diffe renti al panel - Blood erythrocytes [morphology] in blood by automated count RBC MORPHO LOGY APPEAR S NORMAL . SLIDE REVIEW ED. RBC MORPH OLOGY RBC MORPH OLOGY APPEA MARCI [place] SLIDE REVIE WED. 04/13 2:37 PM FULFILLMENT COORDINATOR [facility] Not Available Not Available 04/13/2024 23:05:23 04/14/19 25 04/13/2024 CBC W Auto Diffe renti al panel - Blood platelets [#/volume] in blood by automated count ADEQUA TE PLT EST. ADEQU ATE 04/13 2:37 PM [facility] Not Available Not Available 04/13/2024 23:05:23 04/14/19 25 04/13/2024 CBC W Auto Diffe renti al panel - Blood interpretati on and review of laboratory results Abnorm al Not Available Not Available 23:05:23 04/14/19 25 04/13/2024 Compr ehens jennifer metab olic 2000 panel - Serum or Plasm a glucose [mass/volume ] in serum or plasma 80 text: 70 - 99 mg/dL GLUCO SE 80 70 - 99 MG/DL 04/13 2:33 PM [facility] Not Available Not Available 04/13/2024 23:05:23 04/14/19 25 04/13/2024 Compr ehens jennifer metab olic 1999 panel - Serum or Plasm a urea nitrogen [mass/volume ] in serum or plasma 11 text: 7 - 18 mg/dL BUN 11 7 - 18 MG/DL 04/13 2:33 PM [facility] Not Available Not Available 04/13/2024 23:05:23 04/14/19 25 04/13/2024 Compr ehens jennifer metab olic 1999 panel - Serum or Plasm a creatinine [mass/volume ] in serum or plasma 0.49 text: 0.55 - 1.02 mg/dL low CREAT ININE S/P/B 0.49 (L) 0.55 - 1.02 MG/DL 04/13 2:33 PM [facility] Not Available Not Available 04/13/2024 23:05:23 04/14/19 25 04/13/2024 Compr ehens jennifer metab olic 2000 panel - Serum or Plasm a sodium [moles/volum e] in serum or plasma 133 text: 136 - 145 mmol/L low SODIU M S/P/B 133 (L) 136 - 145 MMOL/ L 04/13 2:33 PM [facility] Not Available Not Available 04/13/2024 23:05:23 04/14/19 25 04/13/2024 Compr ehens jennifer metab olic 2000 panel - Serum or Plasm a potassium [moles/volum e] in serum or plasma 4.4 text: 3.5 - 5.1 mmol/L POTAS SIUM S/P/B 4.4 3.5 - 5.1 MMOL/ L 04/13 2:33 PM [facility] Not Available Not Available 04/13/2024 23:05:23 04/14/19 25 04/13/2024 Compr ehens jennifer metab olic 2000 panel - Serum or Plasm a chloride [moles/volum e] in serum or plasma 102 text: 97 - 115 mmol/L CHLOR RL S/P/B 102 97 - 115 MMOL/ L 04/13 2:[address] [facility] Not Available Not Available 04/13/2024 23:05:23 04/14/19 25 04/13/2024 Compr ehens jennifer metab olic 2000 panel - Serum or Plasm a carbon dioxide, total [moles/volum e] in serum or plasma 23.3 text: 21 - 32 mmol/L CO2 23.3 21 - 32 MMOL/ L 04/13 2:33 PM [facility] Not Available Not Available 04/13/2024 23:05:23 04/14/19 25 04/13/2024 Compr ehens jennifer metab olic 2000 panel - Serum or Plasm a calcium [mass/volume ] in serum or plasma 9.5 text: 8.5 - 10.1 mg/dL CALCI UM S/P/B 9.5 8.5 - 10.1 MG/DL 04/13 2:[address] [facility] Not Available Not Available 04/13/2024 23:05:23 04/14/19 25 04/13/2024 Compr ehens jennifer metab olic 2000 panel - Serum or Plasm a bilirubin.to raheel [mass/volume ] in serum or plasma 0.7 text: 0.2 - 1.2 mg/dL BILIR UBIN TOTAL S/P/B 0.7 0.2 - 1.2 MG/DL 04/13 2:33 PM FULFILLMENT COORDINATOR [facility] Not Available Not Available 04/13/2024 23:05:23 04/14/19 25 04/13/2024 Compr ehens jennifer metab olic 2000 panel - Serum or Plasm a protein [mass/volume ] in serum or plasma 7.9 text: 6.4 - 8.2 g/dL TOTAL PROTE IN S/P/B 7.9 6.4 - 8.2 G/DL 04/13 2:33 PM FULFILLMENT COORDINATOR [facility] Not Available Not Available 04/13/2024 23:05:23 04/14/19 25 04/13/2024 Compr ehens jennifer metab olic 2000 panel - Serum or Plasm a albumin [mass/volume ] in serum or plasma 3.2 text: 3.4 - 5.0 g/dL low ALBUM IN S/P/B 3.2 (L) 3.4 - 5.0 G/DL 04/13 2:33 PM FULFILLMENT COORDINATOR [facility] Not Available Not Available 04/13/2024 23:05:23 04/14/19 25 04/13/2024 Compr ehens jennifer metab olic 2000 panel - Serum or Plasm a aspartate aminotransfe rase [enzymatic activity/vol ume] in serum or plasma 81 U/L low: 15U/Lh igh: 37U/L high AST 81 (H) 15 - 37 U/L 04/13 2:33 PM FULFILLMENT COORDINATOR [facility] Not Available Not Available 04/13/2024 23:05:23 04/14/19 25 04/13/2024 Compr ehens jennifer metab olic 2000 panel - Serum or Plasm a alanine aminotransfe rase [enzymatic activity/vol ume] in serum or plasma 72 U/L low: 14U/Lh igh: 55U/L high ALT 72 (H) 14 - 55 U/L 04/13 2:33 PM [facility] Not Available Not Available 04/13/2024 23:05:23 04/14/19 25 04/13/2024 Compr ehens jennifer metab olic 2000 panel - Serum or Plasm a alkaline phosphatase [enzymatic activity/vol ume] in serum or plasma 204 U/L low: 50U/Lh igh: 136U/L high ALKAL INE PHOSP HATAS E S/P/B 204 (H) 50 - 136 U/L 04/13 2:33 PM [facility] Not Available Not Available 04/13/2024 23:05:23 04/14/19 25 04/13/2024 Compr ehens jennifer metab olic 2000 panel - Serum or Plasm a anion gap in serum or plasma 7.7 text: 2 - 10 mmol/L ANION GAP 7.7 2 - 10 MMOL/ L 04/13 2:33 PM [facility] Not Available Not Available 04/13/2024 23:05:23 04/14/19 25 04/13/2024 Compr ehens jennifer metab olic 1999 panel - Serum or Plasm a urea nitrogen/cre atinine [mass ratio] in serum or plasma 22.3 low: 6high: 26 BUN CREAT ININE RATIO 22.3 6 - 26 04/13 2:33 PM [facility] Not Available Not Available 04/13/2024 23:05:23 04/14/19 25 04/13/2024 Compr ehens jennifer metab olic 2000 panel - Serum or Plasm a albumin/glob ulin [mass ratio] in serum or plasma 0.7 text: 1.0 - 2.0 ratio low A/G RATIO 0.7 (L) 1.0 - 2.0 RATIO 04/13 2:33 PM [facility] Not Available Not Available 04/13/2024 23:05:23 04/14/19 25 04/13/2024 Compr ehens jennifer metab olic 2000 panel - Serum or Plasm a glomerular filtration rate/1.73 sq M.predicted [volume rate/area] in serum, plasma or blood by creatinine-b ased formula (CKD-epi 2020) >90 text: >90 mL/min /1.73 M2 GFR ESTIM ATE >90 >90 ML/GA N/1.7 3 M2 04/13 2:33 PM FULFILLMENT COORDINATOR [facility] Not Available Not Available 04/13/2024 23:05:23 04/14/19 25 04/13/2024 Compr ehens jennifer metab olic 2000 panel - Serum or Plasm a interpretati on and review of laboratory results Abnorm al Not Available Not Available 23:05:23 05/29/19 25 05/28/2024 URINE CULTU RE header [facility] [place] [address] Patie nt:TOÑA HART 1960 Med Rec#: [id number] Order ing MD: CHAR BARRAGAN NDEZhen : [birth year] Sex: F Locat ion: [facility] Test: URINE CULTU RE Colle ct Date: 05-28 18:50 Acces jr #: [id number] Not Available [facility] (Lab) [facility], [place], [address], 05/31/2024 09:42:36 05/29/19 25 05/28/2024 URINE CULTU RE urine culture SPECI MEN DESCR IPTIO N - URINE CLEAN CATCH SPECI AL REQUE STS - NO SPECI AL REQUE ST CULTU RE - >100, 000 COL/M L CITRO BACTE R FREUN DII NOTE: ORGAN ISM MAY DEVEL OP RESIS TANCE AFTER 3 TO 4 DAYS OF THERA PY WITH THIRD GENER ATION CEPHA LOSPO RINS. TESTI NG OF REPEA T ISOLA SERVANDO MAY BE WARRA NTED. CULTU RE - 10,00 0-49, 000 COL/M L ESCHE BA A COLI CULTU RE - 10,00 0-49, 000 COL/M L ENTER OCOCC US SPECI ES REPOR T STATU S - Final 05/31 ORGAN ISM - >100, 000 COL/M L CITRO BACTE R FREUN DII NOTE: ORGAN ISM MAY DEVEL OP RESIS TANCE AFTER 3 TO 4 DAYS OF THERA PY WITH THIRD GENER ATION CEPHA LOSPO RINS. TESTI NG OF REPEA T ISOLA SERVANDO MAY BE WARRA NTED. METHO D - ANGIE AMIKA JAIME - <=2 SUSCE PTIBL E CEFTR IAXON E - <=1 SUSCE PTIBL E CEFTA ZIDIM E - <=1 SUSCE PTIBL E CEFAZ NAHED - >=64 RESIS TANT NITRO FURAN TOIN - <=16 SUSCE PTIBL E GENTA MICIN - >=16 RESIS TANT LEVOF LOXAC IN - 4 RESIS TANT PIPRA CIL/T AZO - <=4 SUSCE PTIBL E TRIME TH-BENITEZ LFAME THOXA ZOLE - <=20 SUSCE PTIBL E TOBRA MYCIN - 8 RESIS TANT ORGAN ISM - 10,00 0-49, 000 COL/M L ESCHE BA A COLI METHO D - ANGIE AMPIC ILLIN - >=32 RESIS TANT AMP/S ULBAC ZAVALA - >=32 RESIS TANT CEFTR IAXON E - <=1 SUSCE PTIBL E CEFTA ZIDIM E - <=1 SUSCE PTIBL E CEFAZ NAHED - <=4 SUSCE PTIBL E ESBL - NEG NITRO FURAN TOIN - 32 SUSCE PTIBL E GENTA MICIN - <=1 SUSCE PTIBL E LEVOF LOXAC IN - >=8 RESIS TANT TRIME TH-BENITEZ LFAME THOXA ZOLE - 40 SUSCE PTIBL E ORGAN ISM - 10,00 0-49, 000 COL/M L ENTER OCOCC US SPECI ES METHO D - ANGIE AMPIC ILLIN - <=2 SUSCE PTIBL E NITRO FURAN TOIN - <=16 SUSCE PTIBL E GENTA MICIN SYNER GY - RESIS TANT PENIC ILLIN G - 2 SUSCE PTIBL E Not Available [facility] (Lab) [facility], [place], [address], 05/31/2024 09:42:36 05/29/19 25 05/28/2024 Lacta te [Mole s/vol ume] in Serum or Plasm a lactate [moles/volum e] in serum or plasma 1.6 text: 0.4 - 2.0 mmol/L LACTI C ACID VENOU S 1.6 0.4 - 2.0 MMOL/ L 05/28 10:04 PM CDT [facility] Not Available Not Available 05/29/2024 08:22:11 05/29/19 25 05/28/2024 Chori ogona dotro pin [Pres ence] in Urine choriogonado tropin [presence] in urine NEGATI VE URINE HCG PREGN BILLY TEST NEGAT JENNIFER Not Available Not Available 05/29/2024 08:22:11 05/29/19 25 05/28/2024 Chori ogona dotro pin [Pres ence] in Urine service comment VALID Inter nal Contr ol: VALID Not Available Not Available 05/29/2024 08:22:11 05/29/19 25 05/28/2024 Chori ogona dotro pin [Pres ence] in Urine interpretati on and review of laboratory results Normal Not Available Not Available 05/14 08:22:11 05/29/19 25 05/31/2024 Bacte sabrina ident ified in Urine by Cultu re specimen source identified URINE CLEAN CATCH SPEC DESCR IPTIO N URINE CLEAN CATCH 05/28 9:25 PM CDT [facility] Not Available Not Available 05/31/2024 12:37:07 05/29/19 25 05/31/2024 Bacte sabrina ident ified in Urine by Cultu re service comment NO SPECIA L REQUES T SPECI AL REQUE STS NO SPECI AL REQUE ST 05/28 9:25 PM CDT [facility] Not Available Not Available 05/31/2024 12:37:07 05/29/19 25 05/31/2024 Bacte sabrina ident ified in Urine by Cultu re bacteria identified in specimen by culture >100,0 00 COL/ML CITROB ACTER KEVIN II NOTE: ORGANI SM MAY DEVELO P RESIST ANCE AFTER 3 TO 4 DAYS OF THERAP Y WITH THIRD GENERA TION CEPHAL OSPORI NS. TESTIN G OF REPEAT ISOLAT ES MAY BE WARRKIM RIAZ. abnormal CULTU RE RESUL T >100, 000 COL/M L CITRO BACTE R FREUN DII NOTE: ORGAN ISM MAY DEVEL OP RESIS TANCE AFTER 3 TO 4 DAYS OF THERA PY WITH THIRD GENER ATION CEPHA LOSPO RINS. TESTI NG OF REPEA T ISOLA SERVANDO MAY BE WARRA NTED. (A) 05/31 8:42 AM CDT [facility] Not Available Not Available 05/31/2024 12:37:07 05/29/19 25 05/31/2024 Bacte sabrina ident ified in Urine by Cultu re bacteria identified in specimen by culture 10,000 -49,00 0 COL/ML ESCHER ICHIA COLI abnormal CULTU RE RESUL T 10,00 0-49, 000 COL/M L ESCHE BA A COLI (A) 05/31 8:42 AM CDT [facility] Not Available Not Available 05/31/2024 12:37:07 05/29/19 25 05/31/2024 Bacte sabrina ident ified in Urine by Cultu re bacteria identified in specimen by culture 10,000 -49,00 0 COL/ML ENTERO COCCUS SPECIE S abnormal CULTU RE RESUL T 10,00 0-49, 000 COL/M L ENTER OCOCC US SPECI ES (A) 05/31 8:42 AM CDT [facility] Not Available Not Available 05/31/2024 12:37:07 05/29/19 25 05/31/2024 Bacte sabrina ident ified in Urine by Cultu re interpretati on and review of laboratory results Abnorm al Not Available Not Available 12:37:07 05/29/19 25 05/28/2024 Chori ogona dotro pin [Pres ence] in Serum or Plasm a choriogonado tropin [presence] in serum or plasma NEGATI VE PREG SCREE N-SER UM NEGAT JENNIFER 05/28 9:50 PM CDT [facility] Not Available Not Available 05/29/2024 08:22:11 05/29/1905/28/2024 Urina lysis dipst ick W Refle x Micro scopi c panel - Urine collection method - specimen URINE STRAIG HT CATH SPECI MEN TYPE URINE STRAI GHT CATH 05/28 6:50 PM CDT [facility] Not Available Not Available 05/29/2024 08:22:10 05/29/1905/28/2024 Urina lysis dipst ick W Refle x Micro scopi c panel - Urine color of urine YELLOW COLOR (U) YELLO W 05/28 7:25 PM CDT [facility] Not Available Not Available 05/29/2024 08:22:10 05/29/1905/28/2024 Urina lysis dipst ick W Refle x Micro scopi c panel - Urine clarity of urine CLEAR TRANS PAREN CY CLEAR 05/28 7:25 PM CDT [facility] Not Available Not Available 05/29/2024 08:22:10 05/29/1905/28/2024 Urina lysis dipst ick W Refle x Micro scopi c panel - Urine specific gravity of urine 1.025 low: 1.001h igh: 1.03 SPECI FIC GRAVI TY (U) 1.025 1.001 - 1.030 05/28 7:25 PM CDT [facility] Not Available Not Available 05/29/2024 08:22:10 05/29/1905/28/2024 Urina lysis dipst ick W Refle x Micro scopi c panel - Urine pH of urine 5.5 low: 5high: 9 U PH 5.5 5.0 - 9.0 05/28 7:25 PM CDT [facility] Not Available Not Available 05/29/2024 08:22:10 05/29/19 25 05/28/2024 Urina lysis dipst ick W Refle x Micro scopi c panel - Urine leukocytes [#/volume] in urine by test strip 250 text: negati ve abnormal LEUKO CYTES (U) 250 (A) NEGAT JENNIFER 05/28 7:25 PM CDT [facility] Not Available Not Available 05/29/2024 08:22:10 05/29/19 25 05/28/2024 Urina lysis dipst ick W Refle x Micro scopi c panel - Urine nitrite [presence] in urine 1+ text: negati ve abnormal NITRI SERVANDO 1+ (A) NEGAT JENNIFER 05/28 7:25 PM CDT [facility] Not Available Not Available 05/29/2024 08:22:10 05/29/19 25 05/28/2024 Urina lysis dipst ick W Refle x Micro scopi c panel - Urine protein [mass/volume ] in urine by test strip NEGATI VE text: <30 mg/dL PROTE IN RANDO M (U) NEGAT JENNIFER <30 MG/DL 05/28 7:25 PM CDT [facility] Not Available Not Available 05/29/2024 08:22:10 05/29/19 25 05/28/2024 Urina lysis dipst ick W Refle x Micro scopi c panel - Urine glucose [mass/volume ] in urine NORMAL text: normal mg/dL GLUCO SE (U) JESUS ALBERTO L JESUS ALBERTO L MG/DL 05/28 7:25 PM CDT [facility] Not Available Not Available 05/29/2024 08:22:10 05/29/19 25 05/28/2024 Urina lysis dipst ick W Refle x Micro scopi c panel - Urine ketones [mass/volume ] in urine by test strip NEGATI VE text: negati ve mg/dL KETON ES MG/DL (U) NEGAT JENNIFER NEGAT JENNIFER MG/DL 05/28 7:25 PM CDT [facility] Not Available Not Available 05/29/2024 08:22:10 05/29/19 25 05/28/2024 Urina lysis dipst ick W Refle x Micro scopi c panel - Urine urobilinogen [units/volum e] in urine by test strip NORMAL text: normal mg/dL UROBI LINOG EN JESUS ALBERTO L JESUS ALBERTO L MG/DL 05/28 7:25 PM CDT [facility] Not Available Not Available 05/29/2024 08:22:10 05/29/19 25 05/28/2024 Urina lysis dipst ick W Refle x Micro scopi c panel - Urine bilirubin.to raheel [mass/volume ] in urine NEGATI VE text: negati ve mg/dL BILIR UBIN (U) NEGAT JENNIFER NEGAT JENNIFER MG/DL 05/28 7:25 PM CDT [facility] Not Available Not Available 05/29/2024 08:22:10 05/29/1905/28/2024 Urina lysis dipst ick W Refle x Micro scopi c panel - Urine erythrocytes [#/volume] in urine by automated test strip NEGATI VE text: negati ve BLOOD (U) NEGAT JENNIFER NEGAT JENNIFER 05/28 7:25 PM CDT [facility] Not Available Not Available 05/29/2024 08:22:10 05/29/1905/28/2024 Urina lysis dipst ick W Refle x Micro scopi c panel - Urine mucus [#/area] in urine sediment by microscopy low power field RARE text: /lpf MUCUS RARE /LPF 05/28 7:25 PM CDT [facility] Not Available Not Available 05/29/2024 08:22:10 05/29/19 25 05/28/2024 Urina lysis dipst ick W Refle x Micro scopi c panel - Urine hyaline casts [#/area] in urine sediment by microscopy low power field RARE text: /lpf HYALI NE CASTS RARE /LPF 05/28 7:25 PM CDT [facility] Not Available Not Available 05/29/2024 08:22:10 05/29/19 25 05/28/2024 Urina lysis dipst ick W Refle x Micro scopi c panel - Urine leukocytes [#/area] in urine sediment by microscopy high power field 22 text: <6 /hpf high WBC/H PF 22 (H) <6 /HPF 05/28 7:25 PM CDT [facility] Not Available Not Available 05/29/2024 08:22:10 05/29/19 25 05/28/2024 Urina lysis dipst ick W Refle x Micro scopi c panel - Urine erythrocytes [#/area] in urine sediment by microscopy high power field 2 text: <6 /hpf RBC/H PF 2 <6 /HPF 05/28 7:25 PM CDT [facility] Not Available Not Available 05/29/2024 08:22:10

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
[2024-08-28 22:02] VITALS: BP 115/79; PULSE 121; RESP 22; TEMP 37.2; O2SAT 100
[2024-08-28] MEDS: SODIUM CHLORIDE 0.9% IV 1,000 ML 999 ML IV CONT (22:04)
[2024-08-28] MEDS: HYDROmorphone HCL INJ (*CRX) 2 MG/ML VIAL 0.5 MG IV PUSH (22:09)
[2024-08-28 22:13] LABS: CRP 15.6 mg/dL (<1.0)
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
--- NOTE | 2024-08-28 22:40 | PC.NURSE ---
Pt to CT
--- NOTE | 2024-08-28 22:41 | PC.NURSE ---
New catheter placed. Catheter clamped to obtain urine sample.
[2024-08-28 22:42] LABS: BEDSIDEPREGUCG Negative (Negative)
[2024-08-28] MEDS: VANCOMYCIN 1,250 MG/NS 250 ML 1,250 MG/250 ML BAG 166.67 MG IVPB (23:25)
--- NOTE | 2024-08-28 23:26 | ECG_ITS ---
Test Date: 2024-08-28 23:45:10 Measurements Intervals Brooks Rate: 111 P: 55 RI: 162 QRS: 4 QRSD: 94 T: 51 QT: 328 QTc: 446 Interpretive Statements SINUS TACHYCARDIA MODERATE VOLTAGE CRITERIA FOR LVH, CONSIDER NORMAL VARIANT [MEETS CRITERIA IN ONE OF: R(aVL), S(V1), R(V5), R(V5/V6)+S(V1)] NONSPECIFIC T-WAVE ABNORMALITY ABNORMAL RHYTHM ECG Compared to ECG 08/28/2024 20:32:26 No significant changes Electronically Signed On 08-29-2024 14:40:02 CDT by Luc Long M.D.
[2024-08-28 23:44] LABS: Add Urine Microscopic? YES; Appearance Urine Clear (Clear); Glucose Urine UA Negative (Negative); Leukocyte Esterase Ur Negative LEU/UL (Negative); Need Manual Microscopic Reviewed; Nitrate Urine Negative (Negative); Non Pathogenic Casts 0-2; Specific Grav Ur > 1.045 (1.001-1.035)
[2024-08-29] VITALS (19 sets, daily range): BP systolic 106–134; BP diastolic 62–89; PULSE 108–125; RESP 17–36; TEMP 36.9; O2SAT 28–100
[2024-08-29 00:16] LABS: Troponin I < 0.012 ng/mL (0.000-0.034)
[2024-08-29] MEDS: SODIUM CHLORIDE 0.9% IV 1,000 ML 999 ML IV CONT ×2 (00:19→02:30)
[2024-08-29] MEDS: VANCOMYCIN 1,250 MG/NS 250 ML 1,250 MG/250 ML BAG 166.67 MG IVPB (00:58)
[2024-08-29] MEDS: HYDROmorphone HCL INJ (*CRX) 2 MG/ML VIAL 0.5 MG IV PUSH ×5 (01:17→12:34)
[2024-08-29] MEDS: CIPROFLOXACIN 400 MG/D5W 200ML 200 ML 200 MG IVPB (02:32)
--- NOTE | 2024-08-29 02:40 | PC.NURSE ---
EDP GUNJAN Cox VORB 25mg Hydroxyzine,pt home medication for anxiety. Order placed by this RN and verified with home medication list.
[2024-08-29] MEDS: HEPARIN SOD/D5W 100 UNITS/ML 25,000 UNITS/250 ML BAG 13 UNITS IV CONT (02:47)
[2024-08-29 03:13] LABS: Hematocrit 30.0 % (37.0-47.0); Hemoglobin 9.0 g/dL (12.0-15.0); Immature Granulocyte Percent A 0.5 % (0-0.5); Lymphocytes Absolute Auto 1.89 K/mm3 (0.9-3.2); Mean Corpuscular HGB Conc 30.0 g/dl (32-36); Mean Corpuscular Hemoglobin 26.0 pg (26-34); Mean Corpuscular Volume 86.7 fl (80-100); Nucleated Red Blood Cells Absolute Auto 0.000 K/mm3 (0.0-0.012); Nucleated Red Blood Cells Perc 0.0 % (0.0-0.2); Platelet Count Result 534 k/mm3 (150-375); Red Blood Count 3.46 M/mm3 (4.2-5.4); White Blood Count 10.0 K/mm3 (4.5-10.0)
[2024-08-29 03:19] LABS: NT Pro B Type Natriuretic Pept < 20 pg/mL (19.9-100)
[2024-08-29 03:23] LABS: INR 1.2; Prothrombin Time 15.6 Seconds (11.1-14.7)
[2024-08-29 03:24] LABS: Partial Thromboplastin Time 37.4 Seconds (22.3-36.8)
--- NOTE | 2024-08-29 04:14 | PC.NURSE ---
Pt moved from stretcher to hospital bed at this time with assistance of ALLISON dudley and this functional tester typewriters. Pillows placed under each extremity and under R buttock. Pt resting at this time. IV ABX and heparin infusing per orders. VS WNL.
[2024-08-29 06:12] LABS: Estimated CRCL calculation 170 ml/min; Estimated Glomerular Filt Rate > 60
[2024-08-29 07:28] LABS: Troponin I < 0.012 ng/mL (0.000-0.034)
[2024-08-29 09:26] LABS: INR 1.2; Prothrombin Time 15.6 Seconds (11.1-14.7)
[2024-08-29 09:28] LABS: Partial Thromboplastin Time 61.7 Seconds (22.3-36.8)
[2024-08-29] MEDS: VANCOMYCIN 1,500 MG/NS 500 ML 1,500 MG/500 ML BAG 250 MG IVPB (10:57)
--- NOTE | 2024-08-29 12:35 | PC.NURSE ---
Transport here to take pt to [facility]. Upon RN walking into room, pt appeared to be sleeping calmly with lights off. When patient woke up, she stated that her chest pain came back and was asking for her next dose of pain medication early. RN spoke to MD Hernandez regarding patient reporting significant pain, per MD Hernandez, okay to give patient's next dose of dilaudid at this time prior to transport. Medicated per APR. Pt A&Ox4. Heparin and vancomycin remains infusing at time of transport.
== END 2024-08-29 12:45 | disposition short-term general hospital (02) ==
PROVIDERS: Student in an Organized Health Care Education/Training Program; Emergency Provider Registered Nurse
DX: I26.99 Other pulmonary embolism without acute cor pulmonale (principal); A41.9 Sepsis, unspecified organism; M86.9 Osteomyelitis, unspecified; Z93.3 Colostomy status; G82.20 Paraplegia, unspecified; J45.909 Unspecified asthma, uncomplicated
CPT/HCPCS: 36415; 71046; 71275; 74177; 80053; 81001; 81025; 82565; 83605; 83690; 83880; 84484; 85025; 85610; 85730; 86140; 87086; 93005; 96361; 96365; 96366; 96367; 96375; 96376; 99291; A9270; J0744; J1171; J1644; J3373; J7030; Q9967

== ENCOUNTER 2024-09-21 20:04 | Observation (INO) | payer OTHER, SELFPAY ==
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
[2024-09-21 20:05] VITALS: BP 142/71; PULSE 115; RESP 18; TEMP 37.7; O2SAT 97
[2024-09-21 20:44] LABS: Hematocrit 30.6 % (37.0-47.0); Hemoglobin 9.1 g/dL (12.0-15.0); Immature Granulocyte Percent A 0.3 % (0-0.5); Lymphocytes Absolute Auto 1.91 K/mm3 (0.9-3.2); Mean Corpuscular HGB Conc 29.7 g/dl (32-36); Mean Corpuscular Hemoglobin 24.1 pg (26-34); Mean Corpuscular Volume 81.2 fl (80-100); Nucleated Red Blood Cells Absolute Auto 0.000 K/mm3 (0.0-0.012); Nucleated Red Blood Cells Perc 0.0 % (0.0-0.2); Platelet Count Result 443 k/mm3 (150-375); Red Blood Count 3.77 M/mm3 (4.2-5.4); White Blood Count 9.3 K/mm3 (4.5-10.0)
--- OUTSIDE RECORDS SUMMARY | 2024-09-21 20:56 | XMS_ITS | Clinical Summary ---
Author Organization [facility] Address [address] [place] [address] Care Team Providers Care Forestry Technician Name Role Phone Timothy Townsend MD Primary Care Provider [phone] Bill Campoverde MD Unavailable [phone] Allergies Active Allergy Reactions Criticality Noted [...] F/u with PM&R clinic as OP for [facility] management of SCI. 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 T 101.9, tachy to 110s, BP stable. +dysuria and flank pain. WBC 18.5 neutrophillic. Last UTI as a teenager, no priro hx pyelo. CMP largely wnl, mild AST/ALT. HDS, Cr 0.82. Came from [facility] b/c she thery weren't controlling my pain and she wanted better care. [facility] ED: CTX 1g x1, zofran, UA and culture, CT A/P per report showed thickened bladder wall and constipation, otherwise normal all else normal. 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 Hgb Electrophoresis 2009 wnl. Plan: - f/u in outpatient setting Asthma 12/14/2009 Overview (03/14/2020): Uncontrolled. Will add Flovent inhaler. Encounters Date Type Department Care Team Description 08/12/2024 Telephone [facility] Home Care Services [address] [facility] [address] [place] [address] Unique Arita from Last 3 Months [...] on file Legal Sex Female 9:46 PM EMPLOYMENT INSTRUCTIONAL ASSOCIATE Gender Identity Not on file Sexual Orientation [...] <65 (1 of 2 - PCV) 2009 HPV Vaccines (1 - 3-dose SCDM series) 2017 DTaP/Tdap/Td Vaccine (2 - Td or Tdap) 06/29/2020 Influenza Vaccine (#1) 2024 Hepatitis B Screening Completed 05/17/2024 Hepatitis C Screening Completed 05/17/2024, 025 Procedures Procedure Name Priority Date/Time Associated Diagnosis [...] - GENERA L ORDERABLES Final Result [facility] Department [place] [address] from Last 3 Months or Most Recently Relevant to Health Maintenance [facility] Advance Directives For more information, please contact: [phone] * Full Code (Latest Code Status on File) Date Activated Date Inactivated Comments 05/17/2024 8:13 AM 05/18/2024 8:26 PM * Full Code Date Activated Date Inactivated Comments 03/14/2020 5:18 AM 03/15/2020 4:50 PM Care Teams Forestry Technician Relationship Specialty Start Date End Date Timothy Townsend MD 3 [facility] [address] [place] [address] PCP - General Family Medicine 09/22/23 Bill Campoverde MD 3 [facility] [address] [place] [address] Consulting Physician Physical Medicine and Rehabilitation 05/18/24
--- OUTSIDE RECORDS SUMMARY | 2024-09-21 20:56 | XMS_ITS | Clinical Summary ---
Author Organization [facility] Address [facility] [place] [address] Care Team Providers Care Television Maintenance Worker Name Role Phone Timothy Townsend MD Primary Care Provider [phone] Allergies Active Allergy Reactions Criticality Noted Date Comments Ceftriaxone Other (see comment) 04/13/2024 Pt unsure her reaction due to being out of it. Medications No known medications Social History Tobacco Use Types Packs/Day Years Used Date Smoking Tobacco: Unknown Tobacco Cessation:Counseling Given: Not Answered Alcohol Use Standard Drinks/Week Comments Not Currently 0 (1 standard drink = 0.6 oz pur e alcohol) Comments No Sex and Gender Information Value Date Recorded Sex Assigned at Female 04/13/2024 5:28 PM ELEMENTARY EDUCATOR Legal Sex Female 11:24 AM CDT Gender [...] of 3 - 19+ 3-dose series) 2009 HPV Vaccines (1 - 3-dose SCD M series) 2017 Cervical Cancer Screening Pa p with HPV Testing (Age 30 to 64) Every 5 Years 2020 Cervical Cancer Screening wi th HPV 2020 COVID-19 Vaccine (1 - 2023-2 5 season) 2023 Hepatitis C Completed 05/17/2024, 05/17/2024 Meningococcal B Vaccine Aged Out No l [...] patient's age to complete this topic Insurance [facility] Care Teams Television Maintenance Worker Relationship Specialty Start Date End Date Timothy Townsend MD [address] [address] PCP - General FAMILY PRACTICE 08/10/23
[2024-09-21 20:59] LABS: INR 1.1; Prothrombin Time 14.2 Seconds (11.1-14.7)
[2024-09-21 21:00] LABS: Partial Thromboplastin Time 37.8 Seconds (22.3-36.8)
[2024-09-21 21:02] LABS: Alanine Aminotransferase 19 U/L (6-35); Albumin Level 3.7 g/dL (3.5-5.1); Alkaline Phosphatase 171 U/L (38-126); Anion Gap 8 mmol/L (4-12); Aspartate Amino Transferase 34 U/L (14-36); Bilirubin,Total 0.4 mg/dL (0.2-1.3); Blood Urea Nitrogen 10 mg/dL (7-17); Calcium 9.3 mg/dL (8.4-10.2); Carbon Dioxide 25 mmol/L (22-30); Chloride 104 mmol/L (98-107); Estimated CRCL calculation 185 ml/min; Estimated Glomerular Filt Rate > 60; Glucose 101 mg/dL (65-110); Potassium 3.4 mmol/L (3.4-5.0); Sodium 137 mmol/L (137-145); Total Protein 8.0 g/dL (6.3-8.2)
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
[2024-09-21] MEDS: PIPERACILLIN/TAZOBACTAM SOD 4.5 GM in SODIUM CHLORIDE 0.9% IV 100 ML 200 ML IVPB (21:05)
[2024-09-21] MEDS: SODIUM CHLORIDE 0.9% IV 1,000 ML 999 ML IV CONT ×3 (21:06)
[2024-09-21] MEDS: ACETAMINOPHEN 500 MG TABLET 1000 MG PO (21:07)
[2024-09-21 21:11] LABS: NT Pro B Type Natriuretic Pept < 20 pg/mL (19.9-100); Troponin I < 0.012 ng/mL (0.000-0.034)
[2024-09-21 21:12] LABS: CRP 12.3 mg/dL (<1.0)
[2024-09-21 21:14] LABS: Hypochromasia 1+; Schistocytes None Seen
--- NOTE | 2024-09-21 21:18 | PC.NURSE ---
Pt previous Urinary Catheter replaced with a new one.
[2024-09-21] MEDS: HYDROmorphone HCL INJ (*CRX) 2 MG/ML VIAL 0.5 MG IV PUSH (21:21)
[2024-09-21 21:32] VITALS: BP 134/86; PULSE 108; RESP 20; O2SAT 100
[2024-09-21 22:30] VITALS: BP 114/63; PULSE 101; RESP 24; O2SAT 98
[2024-09-21 22:38] LABS: Beta HCG Quantitative < 2.39 mIU/ML
[2024-09-21] MEDS: VANCOMYCIN 1,250 MG/NS 250 ML 1,250 MG/250 ML BAG 166.67 MG IVPB (22:38)
[2024-09-21 22:47] LABS: Add Urine Microscopic? YES; Appearance Urine Clear (Clear); Glucose Urine UA Negative (Negative); Leukocyte Esterase Ur 3+ LEU/UL (Negative); Nitrate Urine Negative (Negative); Non Pathogenic Casts 0-2; Specific Grav Ur 1.025 (1.001-1.035)
[2024-09-22] VITALS (10 sets, daily range): BP systolic 105–123; BP diastolic 61–79; PULSE 82–93; RESP 16–20; TEMP 36.4–36.8; O2SAT 96–99; BMI 38.5
[2024-09-22] MEDS: VANCOMYCIN 1,250 MG/NS 250 ML 1,250 MG/250 ML BAG 166.67 MG IVPB (01:28)
[2024-09-22] MEDS: HYDROmorphone HCL INJ (*CRX) 2 MG/ML VIAL 0.5 MG IV PUSH ×3 (02:39→11:51)
[2024-09-22 06:05] LABS: Estimated CRCL calculation 218 ml/min; Estimated Glomerular Filt Rate > 60
[2024-09-22] MEDS: PIPERACILLIN/TAZOBACTAM SOD 4.5 GM in SODIUM CHLORIDE 0.9% IV 100 ML 200 ML IVPB ×3 (06:58→23:01)
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
[2024-09-22] MEDS: GABAPENTIN 300 MG CAPSULE 600 MG PO ×2 (10:35→17:03)
[2024-09-22] MEDS: APIXABAN 5 MG TABLET PO ×2 (10:35→21:05)
[2024-09-22] MEDS: ACETAMINOPHEN 500 MG TABLET 1000 MG PO ×2 (10:35→17:03)
[2024-09-22] MEDS: BACLOFEN 10 MG TABLET PO ×2 (10:35→17:03)
[2024-09-22] MEDS: oxyBUTYnin CHLORIDE XL 5 MG TAB.ER.24 10 MG PO (10:35)
[2024-09-22] MEDS: VANCOMYCIN 1,500 MG/NS 500 ML 1,500 MG/500 ML BAG 250 MG IVPB ×2 (10:36→21:06)
[2024-09-22] MEDS: oxyCODONE HCL (*CRX) 5 MG TAB IR 10 MG PO ×3 (10:39→23:04)
--- NOTE | 2024-09-22 12:34 | P.CONGS_ITS ---
Assessment and Plan Assessment and plan (1) Decubitus ulcer, stage 4 with infection: Code(s): L89.94 - Pressure ulcer of unspecified site, stage 4; L08.9 - Local infection of the skin and subcutaneous tissue, unspecified Status: Acute Assessment and Plan: wound actually looks pretty clean, continue local wound care, will ask Wound Care to see for likely D[place]ins solution, possible vac History of Present Illness Consult details Consult date: 09/22/24 Reason for consult: wound care Requesting physician: Jose Ga MD Narrative: The patient is a 34-year-old female with multiple medical issues including paraplegia presenting with a chronic stage IV decubitus ulcer on her right buttock. The patient reports that the wound has been present for the last 3-4 months. The patient had multiple debridements done at [facility] approximately 3 months ago. The patient has been residing in a skilled care facility and reports that she has been receiving wound care. She reports that over the last few days there has been increased drainage from the wound. She also reports that is been foul-smelling. Patient denies any systemic symptoms of fevers or chills. Review of Systems 2 Review of Systems: All systems reviewed & are unremarkable except as noted in HPI and below PMFSH Past Medical History Medical History Colostomy in place Chronic indwelling Castillo catheter Paraplegia History of pulmonary embolism Social History Social History Smoking status: Current every day smoker Tobacco type: cigarettes Second hand tobacco smoke exposure: No Alcohol intake: never Substance use: never Substance use type: does not use Lack of Transportation: No Lack of Food: Never True Current Housing: I Have Housing Concerned About Future Housing: No Difficulty Paying Gas/Electric Bills: No Difficulty Paying for Meds: No Currently Unemployed: No Education: High School Diploma/GED Difficulty w/ Childcare or Family Care: No Spiritual care concerns: No Meds Home Medications and Allergies Home Medications ?Medication ?Instructions ?Recorded ?Confirmed ?Type acetaminophen 500 mg tablet 1,000 mg PO TID 09/22/24 09/22/24 History albuterol 90 mcg/actuation aerosol 90 mcg inhalation .Q4HR PRN 09/22/24 09/22/24 History inhaler shortness of breath or wheezing apixaban 5 mg tablet (Eliquis) 5 mg PO Q12H 09/22/24 09/22/24 History ascorbic acid (vitamin C) 500 mg 500 mg PO BID 09/22/24 09/22/24 History tablet baclofen 10 mg tablet 10 mg PO TID 09/22/24 09/22/24 History cholecalciferol (vitamin D3) 25 25 mcg PO DAILY 09/22/24 09/22/24 History mcg (1,000 unit) tablet (Vitamin D3) duloxetine 30 mg capsule,delayed 60 mg PO DAILY 09/22/24 09/22/24 History release folic acid 1 mg tablet 1 mg PO DAILY 09/22/24 09/22/24 History gabapentin 100 mg capsule 600 mg PO TID 09/22/24 09/22/24 History ibuprofen 600 mg tablet 600 mg PO Q6H PRN fever or pain 09/22/24 09/22/24 History lidocaine 5 % topical patch 2 patch topical DAILY 09/22/24 09/22/24 History methocarbamol 750 mg tablet 750 mg PO TID 09/22/24 09/22/24 History multivitamin with minerals (DAILY 1 tablet PO DAILY 09/22/24 09/22/24 History VITAMIN FORMULA-MINERALS tablet) naloxone 4 mg/actuation nasal 4 mg intranasal Q2M PRN opioid 09/22/24 09/22/24 History spray (Narcan) overdose ondansetron 4 mg disintegrating 4 mg PO Q6H PRN nausea and vomiting 09/22/24 09/22/24 History tablet oxybutynin chloride 10 mg 10 mg PO DAILY 09/22/24 09/22/24 History tablet,extended release 24 hr oxycodone 10 mg tablet 10 mg PO Q6H PRN pain (scale score 09/22/24 09/22/24 History 4-6) polyethylene glycol 3350 17 17 g PO BID 09/22/24 09/22/24 History gram/dose oral powder sennosides 17.2 mg tablet (Senokot 17.2 mg PO BID 09/22/24 09/22/24 History Extra Strength) thiamine HCl (vitamin B1) 100 mg 100 mg PO DAILY 09/22/24 09/22/24 History tablet trazodone 150 mg tablet 150 mg PO HS 09/22/24 09/22/24 History Allergies Allergy/AdvReac Type Severity Reaction Status Date / Time ceftriaxone (From [facility]) Allergy Mild Hives Verified 09/22/24 02:06 Vital Signs Vital Signs - 24 hr 09/21/24 20:05 09/21/24 21:32 09/21/24 22:30 Temperature 37.7 C H Pulse Rate 115 H 108 H 101 H Respiratory Rate 18 20 24 H Blood Pressure 142/71 H 134/86 114/63 Pulse Oximetry 97 100 98 Oxygen Delivery Room Air 09/22/24 01:58 09/22/24 02:01 09/22/24 03:22 Temperature 36.8 C 36.4 C L Pulse Rate 92 89 Respiratory Rate 20 20 Blood Pressure 105/61 123/79 Pulse Oximetry 96 99 Oxygen Delivery 09/22/24 08:00 09/22/24 09:57 Temperature Pulse Rate 93 Respiratory Rate Blood Pressure Pulse Oximetry Oxygen Delivery Room Air Exam 2 Const: General: cooperative, comfortable and no acute distress HENMT: Head: normal to inspection, normocephalic and atraumatic Eyes: General: appearance normal, both eyes and all related structures Neck: Neck: normal visual inspection, full ROM and no lymphadenopathy Resp: Auscultation: clear to auscultation bilaterally Cardio: Rate: regular rate Rhythm: regular rhythm GI: Inspection: normal to inspection GI Palp: No abdominal tenderness and Yes Soft to palpation Other: ostomy - +fxn Back/Spine/Pelvis: Other: Stage IV right buttock decubitus ulcer - wound looks clean with good granulation tissue, deep space hard to examine, no obvious bone exposure, some foul-smelling discharge present on dressing Neuro: General: patient oriented x3 and CN's II-XI intact bilaterally Results Labs 09/21/24 20:36 09/22/24 05:36 Labs: Abnormal lab results 09/21/24 09/21/24 09/22/24 Range/Units 20:36 22:36 05:36 RBC 3.77 L (4.2-5.4) M/mm3 Hgb 9.1 L (12.0-15.0) g/dL Hct 30.6 L (37.0-47.0) % MCH 24.1 L (26-34) pg MCHC 29.7 L (32-36) g/dl RDW 17.9 H (11.5-14.5) % Plt Count 443 H (150-375) k/mm3 APTT 37.8 H (22.3-36.8) Seconds Creatinine 0.39 L 0.32 L (0.7-1.0) mg/dL Alkaline Phosphatase 171 H (38-126) U/L C-Reactive Protein 12.3 H (<1.0) mg/dL Urine Protein 1+ H (Negative) mg/dL Ur Blood (Man) 1+ H (Negative) Leukocyte Esterase Rfl 3+ H (Negative) DEDRA/UL Urine RBC 21-50 H (0-2) /hpf Urine WBC >100 H (0-3) /hpf Diabetes panel 09/21/24 09/21/24 09/21/24 Range/Units 20:36 20:36 20:36 Sodium Cancelled 137 Potassium Cancelled 3.4 Chloride Cancelled Carbon Dioxide BUN Creatinine Glucose Calcium AST ALT Alkaline Phosphatase Total Protein Albumin 09/21/24 09/21/24 09/21/24 Range/Units 20:36 20:36 20:36 Sodium Potassium Chloride 104 Carbon Dioxide Cancelled 25 BUN Cancelled 10 Creatinine Cancelled Glucose Calcium AST ALT Alkaline Phosphatase Total Protein Albumin 09/21/24 09/21/24 09/21/24 Range/Units 20:36 20:36 20:36 Sodium Potassium Chloride Carbon Dioxide BUN Creatinine 0.39 L Glucose Cancelled 101 Calcium Cancelled 9.3 AST Cancelled ALT Alkaline Phosphatase Total Protein Albumin 09/21/24 09/21/24 09/21/24 Range/Units 20:36 20:36 20:36 Sodium Potassium Chloride Carbon Dioxide BUN Creatinine Glucose Calcium AST 34 ALT Cancelled 19 Alkaline Phosphatase Cancelled 171 H Total Protein Cancelled Albumin 09/21/24 09/21/24 09/22/24 Range/Units 20:36 20:36 05:36 Sodium Potassium Chloride Carbon Dioxide BUN Creatinine 0.32 L Glucose Calcium AST ALT Alkaline Phosphatase Total Protein 8.0 Albumin Cancelled 3.7 Calcium panel 09/21/24 09/21/24 09/21/24 Range/Units 20:36 20:36 20:36 Calcium Cancelled 9.3 Albumin Cancelled 3.7 Pituitary panel 09/21/24 09/21/24 09/21/24 Range/Units 20:36 20:36 20:36 Sodium Cancelled 137 Potassium Cancelled 3.4 Chloride Cancelled Carbon Dioxide BUN Creatinine Glucose Calcium 09/21/24 09/21/24 09/21/24 Range/Units 20:36 20:36 20:36 Sodium Potassium Chloride 104 Carbon Dioxide Cancelled 25 BUN Cancelled 10 Creatinine Cancelled Glucose Calcium 09/21/24 09/21/24 09/21/24 Range/Units 20:36 20:36 20:36 Sodium Potassium Chloride Carbon Dioxide BUN Creatinine 0.39 L Glucose Cancelled 101 Calcium Cancelled 9.3 09/22/24 Range/Units 05:36 Sodium Potassium Chloride Carbon Dioxide BUN Creatinine 0.32 L Glucose Calcium Adrenal panel 09/21/24 09/21/24 09/21/24 Range/Units 20:36 20:36 20:36 Sodium Cancelled 137 Potassium Cancelled 3.4 Chloride Cancelled Carbon Dioxide BUN Creatinine Glucose Calcium Total Bilirubin AST ALT Alkaline Phosphatase Total Protein Albumin 09/21/24 09/21/24 09/21/24 Range/Units 20:36 20:36 20:36 Sodium Potassium Chloride 104 Carbon Dioxide Cancelled 25 BUN Cancelled 10 Creatinine Cancelled Glucose Calcium Total Bilirubin AST ALT Alkaline Phosphatase Total Protein Albumin 09/21/24 09/21/24 09/21/24 Range/Units 20:36 20:36 20:36 Sodium Potassium Chloride Carbon Dioxide BUN Creatinine 0.39 L Glucose Cancelled 101 Calcium Cancelled 9.3 Total Bilirubin Cancelled AST ALT Alkaline Phosphatase Total Protein Albumin 09/21/24 09/21/24 09/21/24 Range/Units 20:36 20:36 20:36 Sodium Potassium Chloride Carbon Dioxide BUN Creatinine Glucose Calcium Total Bilirubin 0.4 AST Cancelled 34 ALT Cancelled 19 Alkaline Phosphatase Cancelled Total Protein Albumin 09/21/24 09/21/24 09/21/24 Range/Units 20:36 20:36 20:36 Sodium Potassium Chloride Carbon Dioxide BUN Creatinine Glucose Calcium Total Bilirubin AST ALT Alkaline Phosphatase 171 H Total Protein Cancelled 8.0 Albumin Cancelled 3.7 09/22/24 Range/Units 05:36 Sodium Potassium Chloride Carbon Dioxide BUN Creatinine 0.32 L Glucose Calcium Total Bilirubin AST ALT Alkaline Phosphatase Total Protein Albumin All other labs normal.
[2024-09-22] MEDS: ASCORBIC ACID 500 MG TABLET PO (17:03)
[2024-09-23] VITALS (10 sets, daily range): BP systolic 103–111; BP diastolic 57–65; PULSE 79–93; RESP 18–20; TEMP 36.3–36.8; O2SAT 99–100
[2024-09-23] MEDS: oxyCODONE HCL (*CRX) 5 MG TAB IR 10 MG PO ×3 (05:00→21:27)
[2024-09-23] MEDS: PIPERACILLIN/TAZOBACTAM SOD 4.5 GM in SODIUM CHLORIDE 0.9% IV 100 ML 200 ML IVPB ×4 (05:00→22:06)
[2024-09-23] MEDS: SENNOSIDES 8.6 MG TABLET PO ×2 (09:03→17:50)
[2024-09-23] MEDS: oxyBUTYnin CHLORIDE XL 5 MG TAB.ER.24 10 MG PO (09:03)
[2024-09-23] MEDS: GABAPENTIN 300 MG CAPSULE 600 MG PO ×3 (09:03→17:50)
[2024-09-23 09:04] LABS: Hematocrit 29.6 % (37.0-47.0); Hemoglobin 8.4 g/dL (12.0-15.0); Immature Granulocyte Percent A 0.2 % (0-0.5); Lymphocytes Absolute Auto 1.77 K/mm3 (0.9-3.2); Mean Corpuscular HGB Conc 28.4 g/dl (32-36); Mean Corpuscular Hemoglobin 23.8 pg (26-34); Mean Corpuscular Volume 83.9 fl (80-100); Nucleated Red Blood Cells Absolute Auto 0.000 K/mm3 (0.0-0.012); Nucleated Red Blood Cells Perc 0.0 % (0.0-0.2); Platelet Count Result 383 k/mm3 (150-375); Red Blood Count 3.53 M/mm3 (4.2-5.4); White Blood Count 4.1 K/mm3 (4.5-10.0)
[2024-09-23] MEDS: FOLIC ACID 1 MG TABLET PO (09:04)
[2024-09-23] MEDS: BACLOFEN 10 MG TABLET PO ×3 (09:04→17:50)
[2024-09-23] MEDS: APIXABAN 5 MG TABLET PO ×2 (09:04→21:28)
[2024-09-23] MEDS: THERAPEUTIC MULTIVITAMINS/MINERALS TAB (*BKC) 1 TABLET PO (09:04)
[2024-09-23] MEDS: CHOLECALCIFEROL (VITAMIN D3) 25 MCG (1,000 UNITS) TABLET PO (09:04)
[2024-09-23] MEDS: THIAMINE HCL 100 MG TABLET PO (09:04)
[2024-09-23] MEDS: ACETAMINOPHEN 500 MG TABLET 1000 MG PO ×3 (09:04→17:50)
[2024-09-23] MEDS: ASCORBIC ACID 500 MG TABLET PO ×2 (09:04→17:50)
[2024-09-23 09:16] LABS: Alanine Aminotransferase 13 U/L (6-35); Albumin Level 3.3 g/dL (3.5-5.1); Alkaline Phosphatase 137 U/L (38-126); Anion Gap 4 mmol/L (4-12); Aspartate Amino Transferase 21 U/L (14-36); Bilirubin,Total 0.2 mg/dL (0.2-1.3); Blood Urea Nitrogen 2 mg/dL (7-17); Calcium 9.0 mg/dL (8.4-10.2); Carbon Dioxide 26 mmol/L (22-30); Chloride 109 mmol/L (98-107); Estimated CRCL calculation 153 ml/min; Estimated Glomerular Filt Rate > 60; Glucose 97 mg/dL (65-110); Potassium 3.4 mmol/L (3.4-5.0); Sodium 139 mmol/L (137-145); Total Protein 7.0 g/dL (6.3-8.2)
[2024-09-23 09:23] LABS: Anisocytosis 1+; Hypochromasia 1+; Schistocytes None Seen
--- NOTE | 2024-09-23 09:53 | PM.PNGS ---
Progress Note: A&P Assessment and Plan (1) Decubitus ulcer, stage 4 with infection: Code(s): L89.94 - Pressure ulcer of unspecified site, stage 4; L08.9 - Local infection of the skin and subcutaneous tissue, unspecified Status: Acute Assessment and Plan: Wound appears very stable. 100% granulation tissue with no signs of infection, tissue , purulence. Per wound care note, continue with Dakin solution dressings every 12 hours. 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 Patient states that she was hospitalized at [facility] 2-3 months ago for roughly a month where she was treated with IV antibiotics, presumably for osteomyelitis. OBGYN consulted by hospitalist to evaluate vaginal discharge. Consider switching to oral antibiotics, as WBC count has remained stable and possible discharge. Will discuss with surgeon. Plan Discussed patient's case and plan of care with Dr. Schultz. Subjective Subjective Date/Time Seen: 09/23/24 09:53 Patient reports: no new complaints Interval history: Patient is doing well today. She does report that she has itchy all over her body. No rash or hives present. She has an allergy to ceftriaxone but no other known allergies. WBC 4.1. Currently on IV vancomycin and Zosyn. Wound care RNs have been following with this patient. Exam : Other: White milky discharge observed from patient's vaginal area and surrounding the anal opening. Foul odor present. Likely from vagina versus from the wound. Back/Spine/Pelvis: Other: Healing stage IV pressure injury present on the right ischium. 5 x 9 x 7 cm. No bone exposed or palpable. 100% healthy granulation tissue. Objective Data Vital Signs Vital Signs: Vital Signs - 24 hr 09/22/24 09:57 09/22/24 12:00 09/22/24 14:00 Temperature 97.5 F L Pulse Rate 88 87 Respiratory Rate 16 Blood Pressure 118/79 Pulse Oximetry 98 Oxygen Delivery Room Air 09/22/24 16:00 09/22/24 21:45 09/22/24 21:49 Temperature 98.2 F Pulse Rate 82 86 86 Respiratory Rate 20 20 Blood Pressure 120/70 Pulse Oximetry 99 99 Oxygen Delivery Room Air 09/22/24 22:00 09/23/24 00:00 09/23/24 04:00 Temperature Pulse Rate 88 81 79 Respiratory Rate Blood Pressure Pulse Oximetry Oxygen Delivery 09/23/24 06:00 09/23/24 08:00 Temperature 97.9 F Pulse Rate 84 80 Respiratory Rate 20 Blood Pressure 111/65 Pulse Oximetry 100 Oxygen Delivery Intake/Output Intake/Output: Intake & Output 09/20/24 09/21/24 09/22/24 09/23/24 23:59 23:59 23:59 23:59 Intake Total 100 5400 980 Output Total 2700 1400 Balance 100 2700 -420 Meds/Results Medications: Active Medications Generic Name Dose Route Start Last Admin Trade Name Freq PRN Reason Stop Dose Admin Acetaminophen 650 mg 09/22/24 01:45 Acetaminophen 325 Mg Tablet PO Q4H PRN Mild Pain (1-3) or Fever Acetaminophen 1,000 mg 09/22/24 10:15 09/23/24 09:04 Acetaminophen 500 Mg Tablet PO 1,000 mg TID NARENDRA Administration Albuterol 1 puff 09/22/24 10:18 Albuterol Sulfate (*Sp) Aerosol 1 Puff INHALATION Q4H PRN SOB OR WHEEZING Apixaban 5 mg 09/22/24 10:15 09/23/24 09:04 Apixaban 5 Mg Tablet PO 5 mg Q12HR NARENDRA Administration Ascorbic Acid 500 mg 09/22/24 17:00 09/23/24 09:04 Ascorbic Acid 500 Mg Tablet PO 500 mg BID NARENDRA Administration Baclofen 10 mg 09/22/24 10:15 09/23/24 09:04 Baclofen 10 Mg Tablet PO 10 mg TID NARENDRA Administration Duloxetine HCl 60 mg 09/22/24 10:15 09/23/24 09:04 Duloxetine Hcl 30 Mg Capsule.Dr PO 60 mg DAILY NARENDRA Administration Folic Acid 1 mg 09/23/24 09:00 09/23/24 09:04 Folic Acid 1 Mg Tablet PO 1 mg DAILY NARENDRA Administration Gabapentin 600 mg 09/22/24 10:15 09/23/24 09:03 Gabapentin 300 Mg Capsule PO 600 mg TID NARENDRA Administration Vancomycin HCl 1,500 mg in 500 mls @ 250 mls/hr 09/22/24 10:00 09/22/24 23:06 Vancomycin 1,500 Mg/Ns 500 Ml IVPB Infused Q12H NARENDRA Infusion Piperacillin Sod/Tazobactam 100 mls @ 200 mls/hr 09/22/24 05:00 09/23/24 05:00 Sod 4.5 gm/ Sodium Chloride IVPB 200 mls/hr Q6H NARENDRA Administration Lidocaine 2 patch 09/23/24 09:00 09/23/24 09:11 Lidocaine 5% Patch TOPICAL Not Given DAILY NARENDRA Methocarbamol 750 mg 09/22/24 10:15 09/23/24 09:04 Methocarbamol 750 Mg Tablet PO 750 mg TID NARENDRA Administration Multivitamins/Calcium 1 tablet 09/23/24 09:00 09/23/24 09:04 Therapeutic Multivitamins/Minerals Tab (*Bkc) PO 1 tablet DAILY NARENDRA Administration Ondansetron HCl 4 mg 09/22/24 01:45 Ondansetron Inj 4 Mg/2 Ml Vial IV PUSH Q4H PRN Nausea Ondansetron HCl 4 mg 09/22/24 10:12 Ondansetron Hcl Odt 4 Mg Tablet PO Q6H PRN nausea and vomiting Oxybutynin Chloride 10 mg 09/22/24 10:15 09/23/24 09:03 Oxybutynin Chloride Xl 5 Mg Tab.Er.24 PO 10 mg DAILY NARENDRA Administration Oxycodone HCl 10 mg 09/22/24 10:12 09/23/24 05:00 Oxycodone Hcl (*Crx) 5 Mg Tab Ir PO 10 mg Q6H PRN Administration pain (scale score 4-6) Polyethylene Glycol 17 gm 09/22/24 17:00 09/23/24 09:11 Polyethylene Glycol 3350 17 Gm Powd.Pack PO Not Given BID [facility] Senna 8.6 mg 09/22/24 17:00 09/23/24 09:03 Sennosides 8.6 Mg Tablet PO 8.6 mg BID [facility] Administration Sodium Hypochlorite 1 applic 09/23/24 09:00 Sod Hypochlorite 1/4 Strength 473 Ml TOPICAL Q12HR [facility] Thiamine HCl 100 mg 09/23/24 09:00 09/23/24 09:04 Thiamine Hcl 100 Mg Tablet PO 100 mg DAILY NARENDRA Administration Trazodone HCl 150 mg 09/22/24 21:00 09/22/24 21:05 Trazodone Hcl 50 Mg Tablet PO 150 mg HS NARENDRA Administration Vitamin D 25 mcg 09/23/24 09:00 09/23/24 09:04 Cholecalciferol (Vitamin D3) 25 Mcg (1,000 Units) Tablet PO 25 mcg DAILY NARENDRA Administration Radiology Results: ITS Impressions Chest/Abdomen/Pelvis CTA 09/22/24 08:34 IMPRESSION: 1. Interval resolution of prior pulmonary embolism in the right middle and lower lobes. No acute pulmonary embolism. 2. Small right pleural effusion. 3. No acute intra-abdominal/pelvic process. 4. 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 Labs Labs: Laboratory Results - last 24 hr 09/23/24 09:00 WBC 4.1 L RBC 3.53 L Hgb 8.4 L Hct 29.6 L MCV 83.9 MCH 23.8 L MCHC 28.4 L RDW 17.6 H Plt Count 383 H MPV 8.7 Immature Gran % (Auto) 0.2 Neut % (Auto) 47.2 Lymph % (Auto) 42.9 [place] % (Auto) 8.0 Eos % (Auto) 0.7 Baso % (Auto) 1.0 Lymph # (Auto) 1.77 [place] # (Auto) 0.3 Eos # (Auto) 0.0 Baso # (Auto) 0.0 Abs Immat Gran (auto) 0.01 Absolute Neuts (auto) 2.0 Absolute Nucleated RBC 0.000 Band Neutrophils % Not Reportable Nucleated RBC % 0.0 Platelet Estimate Adequate Hypochromasia 1+ Anisocytosis 1+ Schistocytes None seen Sodium 139 Potassium 3.4 Chloride 109 H Carbon Dioxide 26 Anion Gap 4 BUN 2 L D Creatinine 0.48 L Estim Creat Clear Calc 153 Estimated GFR > 60 Glucose 97 Calcium 9.0 Total Bilirubin 0.2 AST 21 ALT 13 Alkaline Phosphatase 137 H Total Protein 7.0 Albumin 3.3 L
[2024-09-23] MEDS: VANCOMYCIN 1,750 MG/NS 500 ML 1,750 MG/500 ML BAG 250 MG IVPB (12:26)
[2024-09-23] MEDS: diphenhydrAMINE HCl CAP 25 MG CAPSULE PO (12:27)
[2024-09-23] MEDS: SOD HYPOCHLORITE 1/4 STRENGTH 473 ML 1 APPLIC TOPICAL ×2 (12:29→19:00)
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
--- NOTE | 2024-09-23 14:19 | WPDIDCN ---
Assessment and Plan Assessment and plan (1) Paraplegia: Code(s): G82.20 - Paraplegia, unspecified Status: Acute (2) Decubitus ulcer, stage 4 with infection: Code(s): L89.94 - Pressure ulcer of unspecified site, stage 4; L08.9 - Local infection of the skin and subcutaneous tissue, unspecified Status: Acute Assessment and Plan: #right ischial wound. Underlying paraplegia. Question early bony changes on CT scan. Locally appears more bioburden than acute infectious process. Consider polymicrobial process. # paraplegia. With recent ostomy formation for wound healing. #CTX intolerance. Tolerates zosyn Plan: Maintain Zosyn for now. We will confer with Radiology. Would seem either earlier osteitis or no true osteomyelitis. Get x-rays, transition to oral antibiotics for 7-14 days depending on culture results and clinical improvement. Maintain offloading and local wound care as well as ileostomy taking pressure off for continued wound healing. If flap is going to be pursued, will also consider recommendations for any IV antibiotics in the near future if osteomyelitis is considered. HPI Data of Consult Date/Time: 09/23/24 14:19 Requesting Physician: Jose Ga MD Primary Care Provider: MANAGER FIRE PHYSICIAN Consult Narrative Reason for consult: Ischial wound Narrative: Chula Ronquillo is a 34 year old female with paraplegia here with worsening odor. she has had history of the wound for some time now. She had an ostomy placed at [facility] for improvement of wound care. Has never been on any outpatient IV antibiotic therapy. Start noticing some worsening of the overall with the drainage at her skilled facility 2 days prior. Was transferred to [facility]. Had a local culture done yesterday which is currently pending. She is on Zosyn. She had a bad reaction to ceftriaxone in the remote past but she has been able to tolerate beta lactams. No known history of MDRO. On Eliquis presently to recently diagnosed pulmonary embolism. CT scan shows some possible early osteoarthritis around the ischial tuberosity joint. No fevers or chills presently. White blood cell count normal. ostomy is functioning well. She does tend to get increased stool output which is on antibiotics. No phlebitis from previous IV sites. She has currently been at a skilled facility since her ostomy placement. Has wound care at the skilled facility. Review of Systems Review of Systems: Reviewed. As per [facility] Past Medical History Medical History Colostomy in place Chronic indwelling Castillo catheter Paraplegia History of pulmonary embolism Social History Social History Smoking status: Current every day smoker Tobacco type: cigarettes Second hand tobacco smoke exposure: No Alcohol intake: never Substance use: never Substance use type: does not use Lack of Transportation: No Lack of Food: Never True Current Housing: I Have Housing Concerned About Future Housing: No Difficulty Paying Gas/Electric Bills: No Difficulty Paying for Meds: No Currently Unemployed: No Education: High School Diploma/GED Difficulty w/ Childcare or Family Care: No Spiritual care concerns: No Meds Home Medications and Allergies Home Medications ?Medication ?Instructions ?Recorded ?Confirmed ?Type acetaminophen 500 mg tablet 1,000 mg PO TID 09/22/24 09/22/24 History albuterol 90 mcg/actuation aerosol 90 mcg inhalation .Q4HR PRN 09/22/24 09/22/24 History inhaler shortness of breath or wheezing apixaban 5 mg tablet (Eliquis) 5 mg PO Q12H 09/22/24 09/22/24 History ascorbic acid (vitamin C) 500 mg 500 mg PO BID 09/22/24 09/22/24 History tablet baclofen 10 mg tablet 10 mg PO TID 09/22/24 09/22/24 History cholecalciferol (vitamin D3) 25 25 mcg PO DAILY 09/22/24 09/22/24 History mcg (1,000 unit) tablet (Vitamin D3) duloxetine 30 mg capsule,delayed 60 mg PO DAILY 09/22/24 09/22/24 History release folic acid 1 mg tablet 1 mg PO DAILY 09/22/24 09/22/24 History gabapentin 100 mg capsule 600 mg PO TID 09/22/24 09/22/24 History ibuprofen 600 mg tablet 600 mg PO Q6H PRN fever or pain 09/22/24 09/22/24 History lidocaine 5 % topical patch 2 patch topical DAILY 09/22/24 09/22/24 History methocarbamol 750 mg tablet 750 mg PO TID 09/22/24 09/22/24 History multivitamin with minerals (DAILY 1 tablet PO DAILY 09/22/24 09/22/24 History VITAMIN FORMULA-MINERALS tablet) naloxone 4 mg/actuation nasal 4 mg intranasal Q2M PRN opioid 09/22/24 09/22/24 History spray (Narcan) overdose ondansetron 4 mg disintegrating 4 mg PO Q6H PRN nausea and vomiting 09/22/24 09/22/24 History tablet oxybutynin chloride 10 mg 10 mg PO DAILY 09/22/24 09/22/24 History tablet,extended release 24 hr oxycodone 10 mg tablet 10 mg PO Q6H PRN pain (scale score 09/22/24 09/22/24 History 4-6) polyethylene glycol 3350 17 17 g PO BID 09/22/24 09/22/24 History gram/dose oral powder sennosides 17.2 mg tablet (Senokot 17.2 mg PO BID 09/22/24 09/22/24 History Extra Strength) thiamine HCl (vitamin B1) 100 mg 100 mg PO DAILY 09/22/24 09/22/24 History tablet trazodone 150 mg tablet 150 mg PO HS 09/22/24 09/22/24 History Allergies Allergy/AdvReac Type Severity Reaction Status Date / Time [facility] ([facility] Allergy Mild Hives Verified 09/22/24 02:06 Vital Signs Vital Signs - 24 hr 09/22/24 16:00 09/22/24 21:45 09/22/24 21:49 Temperature 36.8 C Pulse Rate 82 86 86 Respiratory Rate 20 20 Blood Pressure 120/70 Pulse Oximetry 99 99 Oxygen Delivery Room Air 09/22/24 22:00 09/23/24 00:00 09/23/24 04:00 Temperature Pulse Rate 88 81 79 Respiratory Rate Blood Pressure Pulse Oximetry Oxygen Delivery 09/23/24 06:00 09/23/24 08:00 09/23/24 08:00 Temperature 36.6 C Pulse Rate 84 80 Respiratory Rate 20 Blood Pressure 111/65 Pulse Oximetry 100 Oxygen Delivery Room Air 09/23/24 12:00 Temperature Pulse Rate 87 Respiratory Rate Blood Pressure Pulse Oximetry Oxygen Delivery Exam Const: Other: Alert oriented to person place and time. Done via telemedicine with audio and visual interface. Nonlabored breathing. Was able to examine the ischial wound. It is deep but this could skin turgor around that area and pink. No ischemic changes noted. Results Labs 09/23/24 09:00 09/23/24 09:00 Labs: Short CBC 09/23/24 Range/Units 09:00 WBC 4.1 L (4.5-10.0) K/mm3 Hgb 8.4 L (12.0-15.0) g/dL Hct 29.6 L (37.0-47.0) % Plt Count 383 H (150-375) k/mm3 BMP 09/23/24 09:00 Sodium 139 Potassium 3.4 Chloride 109 H Carbon Dioxide 26 BUN 2 L D Creatinine 0.48 L Glucose 97 Calcium 9.0 Liver Function 09/23/24 Range/Units 09:00 Total Bilirubin 0.2 (0.2-1.3) mg/dL AST 21 (14-36) U/L ALT 13 (6-35) U/L Alkaline Phosphatase 137 H (38-126) U/L Albumin 3.3 L (3.5-5.1) g/dL
[2024-09-23 15:02] LABS: Trichomonas Vag PCR NOT DETECTED (NOT DETECTE)
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
--- NOTE | 2024-09-23 23:13 | PC.NURSE ---
received pt from room 347 and orientated to new environment. no signs of distress at this time. RN will continue to monitor for rest of shift.
[2024-09-24 05:28] LABS: Hematocrit 27.0 % (37.0-47.0); Hemoglobin 7.9 g/dL (12.0-15.0); Mean Corpuscular HGB Conc 29.3 g/dl (32-36); Mean Corpuscular Hemoglobin 24.2 pg (26-34); Mean Corpuscular Volume 82.6 fl (80-100); Platelet Count Result 395 k/mm3 (150-375); Red Blood Count 3.27 M/mm3 (4.2-5.4); White Blood Count 3.8 K/mm3 (4.5-10.0)
[2024-09-24 05:50] LABS: Anion Gap 4 mmol/L (4-12); Blood Urea Nitrogen 3 mg/dL (7-17); Calcium 8.8 mg/dL (8.4-10.2); Carbon Dioxide 25 mmol/L (22-30); Chloride 110 mmol/L (98-107); Estimated CRCL calculation 192 ml/min; Estimated Glomerular Filt Rate > 60; Glucose 81 mg/dL (65-110); Potassium 3.5 mmol/L (3.4-5.0); Sodium 139 mmol/L (137-145)
[2024-09-24] MEDS: PIPERACILLIN/TAZOBACTAM SOD 4.5 GM in SODIUM CHLORIDE 0.9% IV 100 ML 200 ML IVPB ×2 (05:54→11:52)
[2024-09-24] MEDS: oxyCODONE HCL (*CRX) 5 MG TAB IR 10 MG PO ×2 (05:55→17:43)
[2024-09-24 06:00] VITALS: BP 117/65; PULSE 84; RESP 18; TEMP 36.6; O2SAT 100
[2024-09-24 08:17] LABS: Iron 35 ug/dL (37-170)
[2024-09-24 08:31] LABS: Percent Iron Saturation 16 % (20-50)
[2024-09-24 08:58] LABS: Ferritin 69.80 ng/mL (6.24-137)
[2024-09-24] MEDS: GABAPENTIN 300 MG CAPSULE 600 MG PO ×2 (09:12→17:37)
[2024-09-24] MEDS: ACETAMINOPHEN 500 MG TABLET 1000 MG PO ×2 (09:12→17:37)
[2024-09-24] MEDS: SENNOSIDES 8.6 MG TABLET PO ×2 (09:12→17:37)
[2024-09-24] MEDS: THERAPEUTIC MULTIVITAMINS/MINERALS TAB (*BKC) 1 TABLET PO (09:12)
[2024-09-24] MEDS: FOLIC ACID 1 MG TABLET PO (09:12)
[2024-09-24] MEDS: BACLOFEN 10 MG TABLET PO ×2 (09:12→17:37)
[2024-09-24] MEDS: APIXABAN 5 MG TABLET PO (09:12)
[2024-09-24] MEDS: THIAMINE HCL 100 MG TABLET PO (09:13)
[2024-09-24] MEDS: ASCORBIC ACID 500 MG TABLET PO ×2 (09:13→17:37)
[2024-09-24] MEDS: CHOLECALCIFEROL (VITAMIN D3) 25 MCG (1,000 UNITS) TABLET PO (09:13)
[2024-09-24 09:19] VITALS: O2SAT 98
[2024-09-24] MEDS: ONDANSETRON HCL ODT 4 MG TABLET PO (09:22)
--- NOTE | 2024-09-24 11:26 | PCDIET ---
Screen for pressure ulcer present. Spoke with wound nurse, patient ulcer is chronic but healing. Patient is eating Regular diet with > 75% intake. Agree with diet orders. NO further nutritional interventions needed at this time.
[2024-09-24 14:00] VITALS: BP 118/63; PULSE 92; RESP 18; TEMP 36.6; O2SAT 98
--- NOTE | 2024-09-24 14:31 | WPDINFPN2 ---
Progress Note: A&P Assessment and Plan (1) Paraplegia: Code(s): G82.20 - Paraplegia, unspecified Status: Acute (2) Decubitus ulcer, stage 4 with infection: Code(s): L89.94 - Pressure ulcer of unspecified site, stage 4; L08.9 - Local infection of the skin and subcutaneous tissue, unspecified Status: Acute Assessment and Plan: #right ischial wound. Underlying paraplegia. Question early bony changes on CT scan. Locally appears more bioburden than acute infectious process. Consider polymicrobial process. #BV from vaginal cx. symptomatic # paraplegia. With recent ostomy formation for wound healing. #CTX intolerance. Tolerates zosyn Plan: 2 weeks oral augmentin for ishial wound 1 week flagyl po bid for BV/Vaginal cx Follow with me via Telemed in 2 weeks. OK for dischage. d/w Lala Darden Subjective Date/time seen: 09/24/24 14:31 Exam Const: Other: Alert oriented to person place and time. Done via telemedicine with audio and visual interface. Nonlabored breathing. Was able to examine the ischial wound. It is deep but this could skin turgor around that area and pink. No ischemic changes noted. Objective Data Vital Signs Vital Signs: Vital Signs - 24 hr 09/23/24 14:55 09/23/24 16:00 09/23/24 20:00 Temperature 36.3 C L Pulse Rate 93 90 89 Respiratory Rate 18 20 Blood Pressure 103/58 L Pulse Oximetry 100 99 Oxygen Delivery Room Air 09/23/24 21:45 09/23/24 22:00 09/24/24 06:00 Temperature 36.8 C 36.6 C 36.6 C Pulse Rate 89 84 84 Respiratory Rate 20 18 18 Blood Pressure 105/57 L 110/65 117/65 Pulse Oximetry 99 99 100 Oxygen Delivery 09/24/24 09:10 09/24/24 09:19 09/24/24 14:00 Temperature 36.6 C Pulse Rate 92 Respiratory Rate 18 Blood Pressure 118/63 Pulse Oximetry 98 98 Oxygen Delivery Room Air Room Air Intake/Output Intake/Output: Intake & Output 09/21/24 09/22/24 09/23/24 09/24/24 23:59 23:59 23:59 23:59 Intake Total 100 5400 2340 440 Output Total 2700 2350 2300 Balance 100 8636 -45 -5334 Meds/Results Medications: Active Medications Generic Name Dose Route Start Last Admin Trade Name Freq PRN Reason Stop Dose Admin Acetaminophen 650 mg 09/22/24 01:45 Acetaminophen 325 Mg Tablet PO Q4H PRN Mild Pain (1-3) or Fever Acetaminophen 1,000 mg 09/22/24 10:15 09/24/24 13:48 Acetaminophen 500 Mg Tablet PO Not Given TID [facility] Albuterol 1 puff 09/22/24 10:18 Albuterol Sulfate (*Sp) Aerosol 1 Puff INHALATION Q4H PRN SOB OR WHEEZING Apixaban 5 mg 09/22/24 10:15 09/24/24 09:12 Apixaban 5 Mg Tablet PO 5 mg Q12HR NARENDRA Administration Ascorbic Acid 500 mg 09/22/24 17:00 09/24/24 09:13 Ascorbic Acid 500 Mg Tablet PO 500 mg BID NARENDRA Administration Baclofen 10 mg 09/22/24 10:15 09/24/24 13:48 Baclofen 10 Mg Tablet PO Not Given TID [facility] Diphenhydramine HCl 25 mg 09/23/24 11:54 09/23/24 12:27 Diphenhydramine Hcl Cap 25 Mg Capsule PO 25 mg Q6H PRN Administration Itching Duloxetine HCl 60 mg 09/22/24 10:15 09/24/24 09:12 Duloxetine Hcl 30 Mg Capsule.Dr PO 60 mg DAILY NARENDRA Administration Folic Acid 1 mg 09/23/24 09:00 09/24/24 09:12 Folic Acid 1 Mg Tablet PO 1 mg DAILY [facility] Administration Gabapentin 600 mg 09/22/24 10:15 09/24/24 13:48 Gabapentin 300 Mg Capsule PO Not Given TID [facility] Piperacillin Sod/Tazobactam 100 mls @ 200 mls/hr 09/22/24 05:00 09/24/24 12:22 Sod 4.5 gm/ Sodium Chloride IVPB Infused Q6H [facility] Infusion Lidocaine 2 patch 09/23/24 09:00 09/24/24 09:13 Lidocaine 5% Patch TOPICAL Not Given DAILY [facility] Methocarbamol 750 mg 09/22/24 10:15 09/24/24 13:48 Methocarbamol 750 Mg Tablet PO Not Given TID [facility] Metronidazole 500 mg 09/24/24 09:00 09/24/24 09:13 Metronidazole 500 Mg Tablet PO 10/01/24 08:59 500 mg Q12HR NARENDRA Administration Multivitamins/Calcium 1 tablet 09/23/24 09:00 09/24/24 09:12 Therapeutic Multivitamins/Minerals Tab (*Bkc) PO 1 tablet DAILY N[facility]ENDRA Administration Ondansetron HCl 4 mg 09/22/24 01:45 Ondansetron Inj 4 Mg/2 Ml Vial IV PUSH Q4H PRN Nausea Ondansetron HCl 4 mg 09/22/24 10:12 09/24/24 09:22 Ondansetron Hcl Odt 4 Mg Tablet PO 4 mg Q6H PRN Administration nausea and vomiting Oxybutynin Chloride 10 mg 09/22/24 10:15 09/24/24 09:15 Oxybutynin Chloride Xl 5 Mg Tab.Er.24 PO Not Given DAILY [facility] Oxycodone HCl 10 mg 09/22/24 10:12 09/24/24 05:55 Oxycodone Hcl (*Crx) 5 Mg Tab Ir PO 10 mg Q6H PRN Administration pain (scale score 4-6) Polyethylene Glycol 17 gm 09/22/24 17:00 09/24/24 09:13 Polyethylene Glycol 3350 17 Gm Powd.Pack PO 17 gm BID NARENDRA Administration Senna 8.6 mg 09/22/24 17:00 09/24/24 09:12 Sennosides 8.6 Mg Tablet PO 8.6 mg BID NARENDRA Administration Sodium Hypochlorite 1 applic 09/23/24 09:00 09/23/24 19:00 Sod Hypochlorite 1/4 Strength 473 Ml TOPICAL 1 applic Q12HR NARENDRA Administration Thiamine HCl 100 mg 09/23/24 09:00 09/24/24 09:13 Thiamine Hcl 100 Mg Tablet PO 100 mg DAILY N[facility]ENDRA Administration Trazodone HCl 150 mg 09/22/24 21:00 09/23/24 21:28 Trazodone Hcl 50 Mg Tablet PO 150 mg HS [facility]ARENDRA Administration Vitamin D 25 mcg 09/23/24 09:00 09/24/24 09:13 Cholecalciferol (Vitamin D3) 25 Mcg (1,000 Units) Tablet PO 25 mcg DAILY NARENDRA Administration Radiology Results: ITS Impressions Chest/Abdomen/Pelvis CTA 09/22/24 08:34 IMPRESSION: 1. Interval resolution of prior pulmonary embolism in the right middle and lower lobes. No acute pulmonary embolism. 2. Small right pleural effusion. 3. No acute intra-abdominal/pelvic process. 4. 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 Labs Labs: Laboratory Results - last 24 hr 09/23/24 09/24/24 09/24/24 13:39 05:08 05:17 WBC 3.8 L RBC 3.27 L Hgb 7.9 L Hct 27.0 L MCV 82.6 MCH 24.2 L MCHC 29.3 L RDW 17.4 H Plt Count 395 H MPV 9.3 Sodium 139 Potassium 3.5 Chloride 110 H Carbon Dioxide 25 Anion Gap 4 BUN 3 L Creatinine 0.37 L Estim Creat Clear Calc 192 Estimated GFR > 60 Glucose 81 Calcium 8.8 Iron 35 L TIBC 219 L % Saturation 16 L Ferritin 69.80 C. trachomatis (PCR) Not detected N. gonorrhoeae (PCR) Not detected T. vaginalis (PCR) Not detected
[2024-09-24 16:03] LABS: Hematocrit 27.4 % (37.0-47.0); Hemoglobin 7.9 g/dL (12.0-15.0)
[2024-09-24] MEDS: SOD HYPOCHLORITE 1/4 STRENGTH 473 ML 1 APPLIC TOPICAL (16:07)
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
--- NOTE | 2024-09-24 16:30 | PM.DS ---
DS: Admitting Diagnosis Discharge Date 09/24/24 Admitting Diagnosis - sepsis - infected decubitus ulcer -vaginal discharge - abnormal urinalysis DS: Discharge Diagnosis Discharge Diagnosis (1) Sepsis: Code(s): A41.9 - Sepsis, unspecified organism Status: Acute (2) Decubitus ulcer, stage 4 with infection: Code(s): L89.94 - Pressure ulcer of unspecified site, stage 4; L08.9 - Local infection of the skin and subcutaneous tissue, unspecified Status: Acute (3) Vaginal discharge: Code(s): N89.8 - Other specified noninflammatory disorders of vagina Status: Acute (4) Iron (Fe) deficiency anemia: Code(s): D50.9 - Iron deficiency anemia, unspecified Status: Acute (5) Abnormal urinalysis: Code(s): R82.90 - Unspecified abnormal findings in urine Status: Acute (6) Paraplegia: Code(s): G82.20 - Paraplegia, unspecified Status: Acute (7) Chronic indwelling Cerda catheter: Code(s): Z97.8 - Presence of other specified devices Status: Acute (8) History of pulmonary embolism: Code(s): Z86.711 - Personal history of pulmonary embolism Status: Acute (9) Colostomy in place: Code(s): Z93.3 - Colostomy status Status: Acute (10) Chronic pain: Code(s): G89.29 - Other chronic pain Status: Acute DS: Summary Hospital Course Reason for hospitalization: sepsis infected decubitus ulcer Hospital Course: Patient is a 34 yo female with PMH of paraplegia, indwelling cerda catheter, colostomy, recently diagnosed PE requiring transfer to [facility] on . Patient presented to the emergency department with complaints of increasing pain in her sacrum with foul, purulent drainage from sacral wound. In ED, WBC 9.3, Hgb 9.1, Plt 443, LA 1.2, CRP 12.3, UA with 1+ protein, 1+ blood, 3+ , 21-50 RBC, >100 WBC. CTA chest/abdomen/pelvis with interval resolution of prior pulmonary embolism in right middle and lower lobes, small right pleural effusion, deep right ischial decubitus ulcer with suggestion of early osteomyelitis of the right ischial tuberosity. Patient was started on IV Zosyn and vancomycin and admitted for further evaluation of sacral wound. While admitted, general surgery was consulted to evaluate concern for decubitus ulcer infection. Wound actually looked quite clean without significant signs of infection so surgery did not recommend any debridement. Wound Care followed and recommended Dakin solution. Infectious Disease followed and did not have significant surgeons for osteomyelitis, but recommended to transition to amoxicillin on discharge for 2 weeks. Urine culture did not show any growth, low suspicion for UTI. Patient noted to have vaginal discharge and was seen by Gynecology. Gonorrhea and chlamydia testing was negative. Patient was started on Flagyl for suspected bacterial vaginosis. On discharge, patient's vital signs were improving and she remained afebrile without leukocytosis. During admission, patient noted to be anemic. This appears chronic in nature per chart review. Hemoglobin remained around 8 without signs of bleeding. Iron studies consistent with iron deficiency anemia. Patient reports prior history of this. She denies current signs of bleeding and no longer has menstrual periods. She was started on iron supplements and instructions were given to [facility] to repeat CBC in 1 week. Consider outpatient colonoscopy iron deficiency persists. Monitor for signs of bleeding especially while on Eliquis for treatment of PE. Patient was discharged to longterm facility in stable condition. Time Spent with Patient Time attestation: Total time spent providing and/or coordinating discharge services: Exam Narrative: General: NAD Eyes: EOMI ENT: neck supple Cardiovascular: Regular rate and rhythm Respiratory: Clear to auscultation, respirations even and unlabored on RA Gastrointestinal: Soft, non tender Genitourinary: no suprapubic tenderness, Cerda catheter draining clear yellow urine. Musculoskeletal: No edema. Skin: warm, dry. Sacral ulcer with clean base, healing with no drainage noted Neuro: Alert. Paraplegia. Psych: Mood appropriate DS: Data Data Completed and Pending Completed studies during hospitalization: - CTA chest/abd/pelvis Pending studies at discharge: -sacral wound culture - vaginal culture Labs on day of discharge: Labs from last 24 hours 09/24/24 09/24/24 09/24/24 15:46 05:17 05:08 WBC 3.8 L RBC 3.27 L Hgb 7.9 L 7.9 L Hct 27.4 L 27.0 L MCV 82.6 MCH 24.2 L MCHC 29.3 L RDW 17.4 H Plt Count 395 H MPV 9.3 Sodium 139 Potassium 3.5 Chloride 110 H Carbon Dioxide 25 Anion Gap 4 BUN 3 L Creatinine 0.37 L Estim Creat Clear Calc 192 Estimated GFR > 60 Glucose 81 Calcium 8.8 Iron 35 L TIBC 219 L % Saturation 16 L Ferritin 69.80 Preliminary micro results at discharge 09/21/24 20:36 Blood Culture - Preliminary Blood 09/21/24 20:41 Blood Culture - Preliminary Blood Discharge Plan Discharge Attending physician on discharge: Jose Ga Consulting providers: Lala Darden; Kaylee Schultz; Danny Ann; Neil Santos Discharging Clinician: Lala Darden Anticipated Discharge Date/Time: 09/24/24 16:21 Patient Disposition: SNF Activity: as tolerated Diet: as tolerated Discharge Instructions: Take all medications as prescribed. Finish antibiotics if prescribed, even if you are feeling better. Follow-up with your primary care provider in one week. While in the hospital, your hemoglobin was low. This is likely due to iron deficiency. You have been started on an iron supplement. care home should recheck a CBC in 5 days. Watch for signs of bleeding. Consider an outpatient colonoscopy if the hemoglobin is persistently low. Return to the emergency department if you develop chest pain, shortness of breath, persistent fever >100.4, confusion, loss of consciousness. Patient Instructions: Antibiotic Form, Apixaban (By mouth) Patient Language: Tuvaluan Stand Alone Forms: General Discharge Information Discharge Medications: New amoxicillin 875 mg tablet 875 mg PO Q12H Qty: 28 0RF metronidazole 500 mg Tablet 500 mg PO Q12HR Qty: 14 0RF ferrous gluconate 324 mg (38 mg iron) Tablet 324 mg PO DAILY@0800 Qty: 30 0RF Continued Eliquis 5 mg tablet 5 mg PO Q12H baclofen 10 mg tablet 10 mg PO TID duloxetine 30 mg capsule,delayed release(DR/EC) 60 mg PO DAILY folic acid 1 mg tablet 1 mg PO DAILY gabapentin 100 mg capsule 600 mg PO TID lidocaine 5 % adhesive patch,medicated 2 patch topical DAILY Rx Instructions: apply to back methocarbamol 750 mg tablet 750 mg PO TID polyethylene glycol 3350 17 gram/dose powder 17 g PO BID acetaminophen 500 mg tablet 1,000 mg PO TID albuterol 90 mcg/actuation aerosol 90 mcg inhalation .Q4HR PRN (Reason: shortness of breath or wheezing) DAILY VITAMIN FORMULA-MINERALS Tablet 1 tablet PO DAILY naloxone [Narcan] 4 mg/actuation spray,non-aerosol 4 mg intranasal Q2M PRN (Reason: opioid overdose) Rx Instructions: spray 1 dose into ONE nostril; alternate nostrils w each dose until help arrives ondansetron 4 mg tablet,disintegrating 4 mg PO Q6H PRN (Reason: nausea and vomiting) oxybutynin chloride 10 mg tablet extended release 24hr 10 mg PO DAILY Senokot Extra Strength 17.2 mg tablet 17.2 mg PO BID thiamine HCl (vitamin B1) 100 mg tablet 100 mg PO DAILY trazodone 150 mg tablet 150 mg PO HS ascorbic acid (vitamin C) 500 mg tablet 500 mg PO BID cholecalciferol (vitamin D3) [Vitamin D3] 25 mcg (1,000 unit) tablet 25 mcg PO DAILY oxycodone 10 mg tablet 10 mg PO Q6H PRN (Reason: pain (scale score 4-6)) 3 Days Qty: 12 0RF Discontinued ibuprofen 600 mg tablet 600 mg PO Q6H PRN (Reason: fever or pain) Date of admission: 09/22/24 01:45 Primary Care Provider: PHYSICIAN,PROCUREMENT AGENT Admitting Provider: Jose Ga Attending physician on admission: Jose Ga Condition: Stable
--- NOTE | 2024-09-25 08:08 | PC.NURSE ---
Vaginal cx is negative.
--- NOTE | 2024-09-30 09:22 | PC.NURSE ---
GUNJAN Reeves viewed sacral wound culture results. Lala called [place] with new antibiotic orders. Cx results faxed to [facility].
== END 2024-09-24 18:30 ==
LOC: ANHED 20:54 → ANH3MED 09-22 02:33 → ANH2MED 09-23 23:09
PROVIDERS: Physician Assistant; Student in an Organized Health Care Education/Training Program; Admitting Provider General Practice; Emergency Provider Student in an Organized Health Care Education/Training Program; Visit Provider General Practice
DX: A41.9 Sepsis, unspecified organism (principal); L89.154 Pressure ulcer of sacral region, stage 4; L08.9 Local infection of the skin and subcutaneous tissue, unspecified; N89.8 Other specified noninflammatory disorders of vagina; R31.9 Hematuria, unspecified; R82.90 Unspecified abnormal findings in urine; D50.9 Iron deficiency anemia, unspecified; G89.29 Other chronic pain; G82.20 Paraplegia, unspecified; F17.210 Nicotine dependence, cigarettes, uncomplicated; Z93.3 Colostomy status; Z79.01 Long term (current) use of anticoagulants; Z96.0 Presence of urogenital implants; Z86.711 Personal history of pulmonary embolism
CPT/HCPCS: 36415; 71275; 74177; 80048; 80053; 80202; 81001; 82565; 82728; 83540; 83550; 83605; 83880; 84484; 84702; 85014; 85018; 85025; 85027; 85610; 85730; 86140; 87040; 87070; 87075; 87086; 87491; 87591; 87661; 87798; 96365; 96366; 96368; 96374; 96375; 99212; 99285; A9270; G0378; G0379; G0463; J1171; J2543; J3373; J7030; Q9967

== ENCOUNTER 2024-10-09 20:10 | Emergency (ER) | payer OTHER, SELFPAY ==
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
[2024-10-09 20:10] VITALS: BP 124/79; PULSE 114; RESP 20; TEMP 37.2; O2SAT 99
[2024-10-09 20:32] LABS: Hematocrit 36.4 % (37.0-47.0); Hemoglobin 10.8 g/dL (12.0-15.0); Immature Granulocyte Percent A 0.1 % (0-0.5); Lymphocytes Absolute Auto 1.73 K/mm3 (0.9-3.2); Mean Corpuscular HGB Conc 29.7 g/dl (32-36); Mean Corpuscular Hemoglobin 23.9 pg (26-34); Mean Corpuscular Volume 80.7 fl (80-100); Nucleated Red Blood Cells Absolute Auto 0.000 K/mm3 (0.0-0.012); Nucleated Red Blood Cells Perc 0.0 % (0.0-0.2); Platelet Count Result 463 k/mm3 (150-375); Red Blood Count 4.51 M/mm3 (4.2-5.4); White Blood Count 7.0 K/mm3 (4.5-10.0)
[2024-10-09 20:42] LABS: Alanine Aminotransferase 16 U/L (6-35); Albumin Level 4.0 g/dL (3.5-5.1); Alkaline Phosphatase 101 U/L (38-126); Anion Gap 9 mmol/L (4-12); Aspartate Amino Transferase 26 U/L (14-36); Bilirubin,Total 0.3 mg/dL (0.2-1.3); Blood Urea Nitrogen 11 mg/dL (7-17); Calcium 9.6 mg/dL (8.4-10.2); Carbon Dioxide 24 mmol/L (22-30); Chloride 104 mmol/L (98-107); Estimated Glomerular Filt Rate > 60; Glucose 115 mg/dL (65-110); Potassium 3.7 mmol/L (3.4-5.0); Sodium 137 mmol/L (137-145); Total Protein 8.3 g/dL (6.3-8.2)
[2024-10-09 20:49] LABS: Lipase 26 U/L (23-300); Magnesium 1.7 mg/dL (1.6-2.3)
[2024-10-09 20:59] LABS: Hypochromasia 1+; Schistocytes None Seen
[2024-10-09 21:00] VITALS: BP 110/86; PULSE 110; RESP 14; O2SAT 98
[2024-10-09] MEDS: SODIUM CHLORIDE 0.9% IV 1,000 ML 999 ML IV CONT (21:12)
[2024-10-09] MEDS: ONDANSETRON INJ 4 MG/2 ML VIAL IV PUSH (21:13)
[2024-10-09] MEDS: MORPHINE SULFATE (*CRX) 4 MG/ML INJ IV PUSH (21:13)
[2024-10-09 21:22] LABS: BEDSIDEPREGUCG Negative (Negative)
[2024-10-09 21:36] LABS: Add Urine Microscopic? YES; Appearance Urine Cloudy (Clear); Glucose Urine UA Negative (Negative); Leukocyte Esterase Ur 2+ LEU/UL (Negative); Need Manual Microscopic Reviewed; Nitrate Urine Negative (Negative); Specific Grav Ur 1.026 (1.001-1.035)
[2024-10-09 22:00] VITALS: BP 128/67; PULSE 98; RESP 16; O2SAT 99
--- NOTE | 2024-10-09 22:37 | ED.FEMALEGU ---
HPI - Female Genitourinary General Chief complaint: Urogenital-Female Stated complaint: Blood in urine-cerda Time Seen by Provider: 10/09/24 20:44 History of Present Illness HPI Narrative: Patient is a 34-year-old paraplegic a patient who is presenting to the emergency department this evening complaining of hematuria and right flank pain. Patient states symptoms have been ongoing for the past few days. Admits that the right flank pain does radiate to her right lower quadrant. Patient has and chronic indwelling Cerda catheter which was changed approximately 3 weeks ago. Denies any nausea vomiting or diarrhea, any recent illness, fevers or chills. Related Data Home Medications ?Medication ?Instructions ?Recorded ?Confirmed ?Last Taken ?Type acetaminophen 500 mg tablet 1,000 mg PO TID 09/22/24 09/22/24 Unknown History albuterol 90 mcg/actuation aerosol 90 mcg inhalation .Q4HR PRN 09/22/24 09/22/24 Unknown History inhaler shortness of breath or wheezing apixaban 5 mg tablet (Eliquis) 5 mg PO Q12H 09/22/24 09/22/24 Unknown History ascorbic acid (vitamin C) 500 mg 500 mg PO BID 09/22/24 09/22/24 Unknown History tablet baclofen 10 mg tablet 10 mg PO TID 09/22/24 09/22/24 Unknown History cholecalciferol (vitamin D3) 25 25 mcg PO DAILY 09/22/24 09/22/24 Unknown History mcg (1,000 unit) tablet (Vitamin D3) duloxetine 30 mg capsule,delayed 60 mg PO DAILY 09/22/24 09/22/24 Unknown History release folic acid 1 mg tablet 1 mg PO DAILY 09/22/24 09/22/24 Unknown History gabapentin 100 mg capsule 600 mg PO TID 09/22/24 09/22/24 Unknown History lidocaine 5 % topical patch 2 patch topical DAILY 09/22/24 09/22/24 Unknown History methocarbamol 750 mg tablet 750 mg PO TID 09/22/24 09/22/24 Unknown History multivitamin with minerals (DAILY 1 tablet PO DAILY 09/22/24 09/22/24 Unknown History VITAMIN FORMULA-MINERALS tablet) naloxone 4 mg/actuation nasal 4 mg intranasal Q2M PRN opioid 09/22/24 09/22/24 Unknown History spray (Narcan) overdose ondansetron 4 mg disintegrating 4 mg PO Q6H PRN nausea and vomiting 09/22/24 09/22/24 Unknown History tablet oxybutynin chloride 10 mg 10 mg PO DAILY 09/22/24 09/22/24 Unknown History tablet,extended release 24 hr polyethylene glycol 3350 17 17 g PO BID 09/22/24 09/22/24 Unknown History gram/dose oral powder sennosides 17.2 mg tablet (Senokot 17.2 mg PO BID 09/22/24 09/22/24 Unknown History Extra Strength) thiamine HCl (vitamin B1) 100 mg 100 mg PO DAILY 09/22/24 09/22/24 Unknown History tablet trazodone 150 mg tablet 150 mg PO HS 09/22/24 09/22/24 Unknown History Allergies Allergy/AdvReac Type Severity Reaction Status Date / Time ceftriaxone (From Rocephin) Allergy Mild Hives Verified 09/22/24 02:06 Review of Systems Review of Systems: All systems are reviewed and are negative unless stated otherwise in the HPI. [facility] Past Medical History Medical History Colostomy in place Chronic indwelling Cerda catheter Paraplegia History of pulmonary embolism Social History Social History Smoking status: Current every day smoker Tobacco type: cigarettes Second hand tobacco smoke exposure: No Alcohol intake: never Substance use: never Substance use type: does not use Lack of Transportation: No Lack of Food: Never True Current Housing: I Have Housing Concerned About Future Housing: No Difficulty Paying Gas/Electric Bills: No Difficulty Paying for Meds: No Currently Unemployed: No Education: High School Diploma/GED Difficulty w/ Childcare or Family Care: No Spiritual care concerns: No Exam Narrative: General: Alert, awake, afebrile, in no acute distress. HEENT: PERRL, no rhinorrhea, no post nasal drip, oropharynx clear. Neck: Trachea midline, no JVD, no lymphadenopathy. Cardiovascular: [place] with regular rhythm, no murmurs, rubs or gallops, no peripheral edema. Respiratory: Clear to auscultation bilaterally, no tachypnea, no wheezing, no rhonchi, no rubs, no respiratory distress. Abdomen: Soft, nontender, nondistended, no rebound, no guarding, no peritoneal signs, colostomy bag in place. Musculoskeletal: No joint swelling or deformity, normal muscle tone. Skin: No rashes or petechia, no signs of infection. Psychiatric: Alert and oriented, normal behavior and judgment for situation. Neurological: Alert and oriented to person, place, and time. Follows all commands. No focal deficits, speech is clear and fluent. Course Vital Signs Vital signs: Vital Signs Temperature 99.0 F 10/09/24 20:10 Pulse Rate 114 H 10/09/24 20:10 Respiratory Rate 20 10/09/24 20:10 Blood Pressure 124/79 10/09/24 20:10 Pulse Oximetry 99 10/09/24 20:10 Oxygen Delivery Room Air 10/09/24 20:10 Temperature 99.0 F 10/09/24 20:10 Pulse Rate 114 H 10/09/24 20:10 Respiratory Rate 20 10/09/24 20:10 Blood Pressure 124/79 10/09/24 20:10 Pulse Oximetry 99 10/09/24 20:10 Oxygen Delivery Room Air 10/09/24 20:10 MDM - Female Genitourinary MDM Narrative Medical decision making narrative: The patient was evaluated by myself in the emergency department. History is obtained from patient who is an independent historian and physical exam was performed. External medical records were reviewed at this time. IV was established and pertinent tests were ordered. Patient was administered 4 mg of IV morphine for pain and 4 mg IV Zofran for nausea and 1 L IV fluid bolus with normal saline. Laboratory results obtained revealing No acute process. Urinalysis revealed 3+ blood, greater than 100 RBCs and greater than 100 wbc's, 2+ leuk esterases. Patient's Cerda catheter was changed and a new urine sample was used for urinalysis. Imaging studies obtained included CT abdomen pelvis with IV contrast which was independently interpreted by me revealing Chronic stage IV sacral decubitus ulcer with chronic osteomyelitis, otherwise unremarkable. Differential diagnosis considerations include kidney stones, pyelonephritis, urinary tract infection. Comorbidities impacting this visit include paraplegic status. I have evaluated and discussed social determinants of health with the patient that could potentially impact subsequent diagnosis and treatment plans. On repeat assessment of the patient, reevaluation revealed that the patient is doing well and is in no acute distress. Patient symptoms have improved since she arrived to our emergency department. Repeat vital signs were all reviewed and noted to be stable. Differential diagnosis and treatment plan were discussed with the patient at bedside. Patient agrees with discussion and after shared medical decision making agrees with discharge. All questions were answered to the patient's satisfaction. Patient will follow up with her PCP/wound care in 3-5 days. A script for Bactrim was sent to patient's pharmacy to take as prescribed for her UTI. Patient was provided with strict return precautions and instructed to return to the emergency department if any new or worsening symptoms develop. The patient was discharged in stable condition. Lab Data 10/09/24 20:27 10/09/24 20:27 Labs: Lab Results 10/09/24 10/09/24 10/09/24 Range/Units 20:27 21:15 21:21 WBC 7.0 (4.5-10.0) K/mm3 RBC 4.51 (4.2-5.4) M/mm3 Hgb 10.8 L (12.0-15.0) g/dL Hct 36.4 L (37.0-47.0) % MCV 80.7 (80-100) fl MCH 23.9 L (26-34) pg MCHC 29.7 L (32-36) g/dl RDW 18.2 H (11.5-14.5) % Plt Count 463 H (150-375) k/mm3 MPV 9.1 (7.4-10.4) fl Immature Gran % (Auto) 0.1 (0-0.5) % Neut % (Auto) 66.5 (45.5-73.1) % Lymph % (Auto) 24.8 (18.3-44.2) % Pine % (Auto) 7.0 (2.6-8.5) % Eos % (Auto) 0.6 (0-4.4) % Baso % (Auto) 1.0 (0.2-1.2) % Lymph # (Auto) 1.73 (0.9-3.2) K/mm3 Pine # (Auto) 0.5 (0.1-0.6) K/mm3 Eos # (Auto) 0.0 (0-0.3) K/mm3 Baso # (Auto) 0.1 (0.0-0.1) K/mm3 Abs Immat Gran (auto) 0.01 (0.00-0.031) K/mm3 Absolute Neuts (auto) 4.6 (1.3-6.7) K/mm3 Absolute Nucleated RBC 0.000 (0.0-0.012) K/mm3 Band Neutrophils % Not Reportable Nucleated RBC % 0.0 (0.0-0.2) % Platelet Estimate Increased (Adequate) Hypochromasia 1+ Schistocytes None seen Sodium 137 (137-145) mmol/L Potassium 3.7 (3.4-5.0) mmol/L Chloride 104 (98-107) mmol/L Carbon Dioxide 24 (22-30) mmol/L Anion Gap 9 (4-12) mmol/L BUN 11 D (7-17) mg/dL Creatinine 0.44 L (0.7-1.0) mg/dL Estim Creat Clear Calc Not Reportable Estimated GFR > 60 (59 - ) Glucose 115 H (65-110) mg/dL Lactic Acid 1.5 (0.7-2.0) mmol/L Calcium 9.6 (8.4-10.2) mg/dL Magnesium 1.7 (1.6-2.3) mg/dL Total Bilirubin 0.3 (0.2-1.3) mg/dL AST 26 (14-36) U/L ALT 16 (6-35) U/L Alkaline Phosphatase 101 (38-126) U/L Total Protein 8.3 H (6.3-8.2) g/dL Albumin 4.0 (3.5-5.1) g/dL Lipase 26 (23-300) U/L Urine Color Yellow (Yellow) Urine Appearance Cloudy H (Clear) Urine pH 6.0 (5.0-9.0) Ur Specific Britton 1.026 (1.001-1.035) Urine Protein 3+ H (Negative) mg/dL Urine Glucose (UA) Negative (Negative) mg/dL Urine Ketones Negative (Negative) mg/dL Ur Blood (Man) 3+ H (Negative) Urine Nitrate Negative (Negative) Urine Bilirubin Negative (Negative) Urine Urobilinogen 0.2 (<2.0) mg/dL Add Ur Microanalysis Reviewed Leukocyte Esterase Rfl 2+ H (Negative) DEDRA/UL Urine RBC >100 H (0-2) /hpf Urine WBC >100 H (0-3) /hpf Ur Squamous Epith Cells None seen (Few) /hpf Urine Bacteria Rare /hpf Urine Casts 3-5 POC Urine HCG, Qual Negative (Negative) Discharge Plan Discharge Clinical Impression: UTI (urinary tract infection), Chronic indwelling Cerda catheter Patient Disposition: Home Condition: Improved Instructions: Antibiotic Form, Urinary Tract Infection in Women (ED), Cerda Catheter Placement and Care (ED) Additional Instructions: Please follow-up with your family doctor within the next 3-5 days. Return to emergency department if any new or worsening symptoms develop. Take the prescribed antibiotic as instructed for UTI. Patient Language: Turkish Prescriptions: New sulfamethoxazole-trimethoprim [Bactrim DS] 800-160 mg tablet 1 tablet PO Q12H 5 Days Qty: 10 0RF No Action Eliquis 5 mg tablet 5 mg PO Q12H baclofen 10 mg tablet 10 mg PO TID duloxetine 30 mg capsule,delayed release(DR/EC) 60 mg PO DAILY folic acid 1 mg tablet 1 mg PO DAILY gabapentin 100 mg capsule 600 mg PO TID lidocaine 5 % adhesive patch,medicated 2 patch topical DAILY Rx Instructions: apply to back methocarbamol 750 mg tablet 750 mg PO TID polyethylene glycol 3350 17 gram/dose powder 17 g PO BID acetaminophen 500 mg tablet 1,000 mg PO TID albuterol 90 mcg/actuation aerosol 90 mcg inhalation .Q4HR PRN (Reason: shortness of breath or wheezing) DAILY VITAMIN FORMULA-MINERALS Tablet 1 tablet PO DAILY naloxone [Narcan] 4 mg/actuation spray,non-aerosol 4 mg intranasal Q2M PRN (Reason: opioid overdose) Rx Instructions: spray 1 dose into ONE nostril; alternate nostrils w each dose until help arrives ondansetron 4 mg tablet,disintegrating 4 mg PO Q6H PRN (Reason: nausea and vomiting) oxybutynin chloride 10 mg tablet extended release 24hr 10 mg PO DAILY Senokot Extra Strength 17.2 mg tablet 17.2 mg PO BID thiamine HCl (vitamin B1) 100 mg tablet 100 mg PO DAILY trazodone 150 mg tablet 150 mg PO HS ascorbic acid (vitamin C) 500 mg tablet 500 mg PO BID cholecalciferol (vitamin D3) [Vitamin D3] 25 mcg (1,000 unit) tablet 25 mcg PO DAILY amoxicillin 875 mg tablet 875 mg PO Q12H Qty: 28 0RF metronidazole 500 mg Tablet 500 mg PO Q12HR Qty: 14 0RF ferrous gluconate 324 mg (38 mg iron) Tablet 324 mg PO DAILY@0800 Qty: 30 0RF oxycodone 10 mg tablet 10 mg PO Q6H PRN (Reason: pain (scale score 4-6)) 3 Days Qty: 12 0RF Follow-up/Referrals: PHYSICIAN,FUNDRAISER [Primary Care Provider, Internal Medicine] Katie Villagomez DO [Physician, Family Practice] - 3 Days Time of Disposition: 23:34
[2024-10-09 23:00] VITALS: BP 130/75; PULSE 99; RESP 16; O2SAT 99
[2024-10-09] MEDS: oxyCODONE HCL (*CRX) 10 MG TAB SR 12HR PO (23:37)
[2024-10-09] MEDS: KETOROLAC 15 MG/ML VIAL (*BKC) IV PUSH (23:37)
[2024-10-10] VITALS: BP 120/68; PULSE 86; RESP 16; O2SAT 99
== END 2024-10-10 00:41 | disposition home or self-care (01) ==
PROVIDERS: Emergency Provider Emergency Medicine
DX: T83.511A Infection and inflammatory reaction due to indwelling urethral catheter, initial encounter (principal); F17.210 Nicotine dependence, cigarettes, uncomplicated; G82.20 Paraplegia, unspecified; Z93.3 Colostomy status; Z86.711 Personal history of pulmonary embolism; Y82.8 Other medical devices associated with adverse incidents
CPT/HCPCS: 36415; 51702; 74177; 80053; 81001; 81025; 83605; 83690; 83735; 85025; 96374; 96375; 96376; 99284; A9270; J1885; J2270; J2405; J7030; Q9967

== ENCOUNTER 2024-11-09 11:10 | Emergency (ER) | payer OTHER, SELFPAY ==
[2024-11-09 11:13] VITALS: BP 114/84; PULSE 92; RESP 17; TEMP 36.4; O2SAT 100
[2024-11-09 11:16] VITALS: PULSE 91
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
--- OUTSIDE RECORDS SUMMARY | 2024-11-09 12:18 | XMS_ITS | Clinical Summary ---
Author Organization [facility] Address [address] [place] [id number] Care Team Providers Care Clinical Training Specialist Name Role Phone Timothy Townsend MD Primary Care Provider [phone] Allergies Active Allergy Reactions Criticality Noted Date Comments Ceftriaxone Other (see comment) 04/13/2024 Pt unsure her reaction due to being out of it. Medications ciprofloxacin (CIPRO) 500 MG tablet Take 1 tablet (500 mg total) by mouth 2 (two) times daily for 7 days. 14 tablet 11/04/2024 Active Encounters Date Type Department Care Team Description 11/04/2024 3:55 PM CDT - 11/04/2024 7:01 PM CDT Emergency [facility] Emergency Room [address] [place], [place] [id number] Aracelis Belcher MD Urinary Catheter Problem Discharge Disposition: Home or Self Care (Routine Discharge) 11/04/2024 Travel from Last 3 Months Social History Tobacco Use Types Packs/Day Years Used Date Smoking Tobacco: Unknown Tobacco Cessation:Counseling Given: Not Answered Alcohol Use Standard Drinks/Week Comments Not Currently 0 (1 standard drink = 0.6 oz pur e alcohol) Comments No Sex and Gender Information Value Date Recorded Sex Assigned at Female 04/13/2024 5:28 PM [employer] Legal Sex Female 11:24 AM CDT Gender Identity Not on file Sexual Orientation Not on file Last Filed Vital Signs Vital Sign Reading Time Taken Comments Blood Pressure 129/72 11/04/2024 4:01 PM CDT Pulse 104 11/04/2024 4:01 PM CDT Temperature 36.6 C (97.9 F) 11/04/2024 4:01 PM CDT Respiratory Rate 18 11/04/2024 4:01 PM CDT Oxygen Saturation 99% 11/04/2024 4:02 PM CDT Inhaled Oxygen Concentration - - Weight 90.7 kg (200 lb) 11/04/2024 4:01 PM CDT Height 160 cm (5' 3) 11/04/2024 4:01 PM CDT Body Mass Index 35.43 11/04/2024 4:01 PM CDT Plan of Treatment Health Maintenance [...] 5 Years 2020 Cervical Cancer Screening wi HPV 2020 COVID-19 Vaccine (2023-2 5 season) 2024 Hepatitis C Completed 05/17/2024, 05/17/2024 Meningococcal B [...] Procedure Name Priority Date/Time Associated Diagnosis Comments TEST URINE STAT 11/04/2024 4:47 PM CDT URINALYSIS, AUTO, COMPLETE STAT 11/04/2024 4:47 PM CDT COMPREHENSIVE METABOLIC PANEL STAT 11/04/2024 4:45 PM CDT CBC W/DIFF AUTOMATED STAT 11/04/2024 4:45 PM CDT from Last 3 Months Results * TEST URINE (11/04/2024 4:47 PM CDT) URINE HCG TEST NEGATIVE NEGATIVE 11/04/2024 5:07 PM CDT [facility] Comment: VERY DILUTE URINE SPECIMENS MAY NOT CONTAIN COMPTOMETER OPERATOR LEVELS OF HCG. IF IS STILL SUSPECTED, A SERUM HCG TEST IS RECOMMENDED. URINE SPECIMEN FROM URETHRA / Unknown 11/04/2024 4:47 PM CDT us Aracelis Belcher MD URINE ORDERABLES Final Result [facility] [address] [place] [address], [place] [phone] * (ABNORMAL) URINALYSIS, AUTO, COMPLETE (11/04/2024 4:47 PM CDT) COLOR (U) YELLOW 11/04/2024 5:21 PM CDT [facility] TRANSPARENCY CLEAR 11/04/2024 5:21 PM CDT [facility] SPECIFIC GRAVITY (U) 1.020 1.000 - 1.030 11/04/2024 5:21 PM CDT [facility] U PH 6.5 5.0 - 9.0 11/04/2024 5:21 PM CDT [facility] LEUKOCYTES (U) 1+(A) NEGATIVE 11/04/2024 5:21 PM CDT [facility] NITRITES POSITIVE(A) NEGATIVE 11/04/2024 5:21 PM CDT [facility] PROTEIN RANDOM (U) NEGATIVE NEGATIVE 11/04/2024 5:21 PM CDT [facility] GLUCOSE (U) NEGATIVE NEGATIVE 11/04/2024 5:21 PM CDT [facility] KETONES MG/DL (U) NEGATIVE NEGATIVE 11/04/2024 5:21 PM CDT [facility] BILIRUBIN (U) NEGATIVE NEGATIVE 11/04/2024 5:21 PM CDT [facility] BLOOD (U) NEGATIVE NEGATIVE 11/04/2024 5:21 PM CDT [facility] WBC/HPF 10-25 0 - 5 /HPF 11/04/2024 5:21 PM CDT [facility] RBC/HPF 0-5 0 - 5 /HPF 11/04/2024 5:21 PM CDT [facility] EPI/HPF FEW /HPF 11/04/2024 5:21 PM CDT [facility] BACTERIA (U) MODERATE /HPF 11/04/2024 5:21 PM CDT [facility] URINE SPECIMEN OBTAINED VIA INDWELLING URINARY CATHETER / Unknown 11/04/2024 4:47 PM CDT us Aracelis Belcher MD URINE ORDERABLES Final Result [facility] [address] [place] [address], [place] [phone] * (ABNORMAL) COMPREHENSIVE METABOLIC PANEL (11/04/2024 4:45 PM CDT) GLUCOSE 91 70 - 99 MG/DL 11/04/2024 5:04 PM CDT [facility] BUN 8 7 - 18 MG/DL 11/04/2024 5:04 PM CDT [facility] CREATININE S/P/B 0.63 0.55 - 1.02 MG/DL 11/04/2024 5:04 PM CDT [facility] SODIUM S/P/B 136 136 - 145 MMOL/L 11/04/2024 5:04 PM CDT [facility] POTASSIUM S/P/B 3.6 3.5 - 5.1 MMOL/L 11/04/2024 5:04 PM [facility] CHLORIDE S/P/B 101 100 - 108 MMOL/L 11/04/2024 5:04 PM [facility] CO2 26.6 21 - 32 MMOL/L 11/04/2024 5:04 PM [facility] CALCIUM S/P/B 9.2 8.5 - 10.1 MG/DL 11/04/2024 5:04 PM [facility] BILIRUBIN TOTAL S/P/B 0.2 0.2 - 1.2 MG/DL 11/04/2024 5:04 PM [facility] TOTAL PROTEIN S/P/B 8.3(H) 6.4 - 8.2 G/DL 11/04/2024 5:04 PM [facility] ALBUMIN S/P/B 2.9(L) 3.4 - 5.0 G/DL 11/04/2024 5:04 PM [facility] AST 29 15 - 37 U/L 11/04/2024 5:04 PM [facility] ALT 55 14 - 55 U/L 11/04/2024 5:04 PM [facility] ALKALINE PHOSPHATASE S/P/B 257(H) 50 - 136 U/L 11/04/2024 5:04 PM [facility] ANION GAP 8.4 5 - 15 MMOL/L 11/04/2024 5:04 PM [facility] BUN CREATININE RATIO 12.7 6 - 26 11/04/2024 5:04 PM [facility] A/G RATIO 0.5(L) 1.0 - 2.0 RATIO 11/04/2024 5:04 PM CDT [facility] GFR ESTIMATE >90 >90 ML/MIN/1.7 3 M2 11/04/2024 5:04 PM CDT [facility] Comment: NOTE: eGFR is not calculated for patients <18 years of age. This is an estimated GFR calculation using the new CKD EPI creatinine equation without race and so does not require a correction factor for race. This estimated GFR should not be used for calculating drug doses. 11/04/2024 4:45 PM CDT us Aracelis Belcher MD LABORATORY Final Result [facility] [address] [address] [phone], * (ABNORMAL) CBC W/DIFF AUTOMATED (11/04/2024 4:45 PM CDT) WBC 5.78 4.4 - 11.0 x10'3/uL 11/04/2024 4:51 PM CDT [facility] RBC 4.80 4.50 - 5.10 x10'6/uL 11/04/2024 4:51 PM CDT [facility] HGB 11.5(L) 12.3 - 15.3 G/DL 11/04/2024 4:51 PM CDT [facility] HCT 38.9 35.9 - 44.6 % 11/04/2024 4:51 PM CDT [facility] MCV 81.0 80.0 - 96.0 FL 11/04/2024 4:51 PM CDT [facility] MCH 24.0(L) 25.3 - 30.9 PG 11/04/2024 4:51 PM CDT [facility] MCHC 29.6(L) 31.0 - 34.1 G/DL 11/04/2024 4:51 PM CDT [facility] RDW 16.0(H) 12.4 - 15.1 % 11/04/2024 4:51 PM CDT [facility] PLT 480(H) 151 - 353 x10'3/uL 11/04/2024 4:51 PM CDT [facility] MPV 10.2 9.6 - 12.0 FL 11/04/2024 4:51 PM CDT [facility] RBC MORPHOLOGY NORMAL 11/04/2024 4:51 PM CDT [facility] PLT MORPH. NORMAL 11/04/2024 4:51 PM CDT [facility] WBC MORPHOLOGY NORMAL 11/04/2024 4:51 PM CDT [facility] LYMPHOCYTES % 35.3 15.8 - 45.0 % 11/04/2024 4:51 PM CDT [facility] NEUTROPHILS % 56.7 42.1 - 71.9 % 11/04/2024 4:51 PM CDT [facility] MONOCYTES % 5.9 5.7 - 12.5 % 11/04/2024 4:51 PM T [facility] EOSINOPHILS 1.0 0.0 - 5.6 % 11/04/2024 4:51 PM T [facility] BASOPHILS 0.9 0.0 - 1.3 % 11/04/2024 4:51 PM CDT [facility] ABS. NEUTROPHILS 3.28 1.40 - 6.00 x10'3/uL 11/04/2024 4:51 PM CDT [facility] IMMATURE GRANS % 0.2 0.0 - 0.5 % 11/04/2024 4:51 PM CDT [facility] ABS. LYMPHOCYTES 2.04 0.80 - 4.70 x10'3/uL 11/04/2024 4:51 PM CDT [facility] 11/04/2024 4:45 PM CDT Aracelis Belcher MD LABORATORY Final Result [facility] [address] [place] [address], [place] [phone] from Last 3 Months Insurance [facility] Care Teams Clinical Training Specialist Relationship Specialty Start Date End Date Timothy Townsend MD [address] [address] [place] [phone] PCP - General FAMILY PRACTICE 08/10/23
== END 2024-11-09 14:33 | disposition home or self-care (01) ==
PROVIDERS: Emergency Provider Emergency Medicine
DX: T83.021A Displacement of indwelling urethral catheter, initial encounter (principal); Y73.1 Therapeutic (nonsurgical) and rehabilitative gastroenterology and urology devices associated with adverse incidents; F17.210 Nicotine dependence, cigarettes, uncomplicated; G82.20 Paraplegia, unspecified; Z93.3 Colostomy status
CPT/HCPCS: 51702; 99283